=== PATIENT | male | born 1965 | race Two or more races ===

== ENCOUNTER 2016-07-25 14:15 | Inpatient (IN) | payer MEDICARE, MEDICAID ==
[2016-07-25] MEDS ORDERED: NORMAL SALINE 1000 ML 1,000 ML IV ONE ×2 (15:00→16:36)
[2016-07-25] MEDS ORDERED: ACETAMINOPHEN SUSP 160 MG/5 ML ORAL SYRING PO ONE (15:00)
[2016-07-25 15:19] LABS: ABSOLUTE BASOPHILS # (AUTO) 0.1 10^3/uL (0.0-0.2); ABSOLUTE EOSINOPHILS # (AUTO) 0.2 10^3/uL (0.0-0.6); ABSOLUTE LYMPHOCYTES (AUTO) 2.2 10^3/uL (0.5-4.7); ABSOLUTE MONOCYTES (AUTO) 0.9 10^3/uL (0.1-1.4); ABSOLUTE NEUT (AUTO) 12.7 10^3/uL (1.7-8.2); BASOPHILS % (AUTO) 0.4 % (0-2); EOSINOPHILS % (AUTO) 1.4 % (0-6); HEMATOCRIT 28.6 % (37.9-51.0); HEMOGLOBIN 8.8 g/dL (13.5-17.0); HGB HCT DIFFERENCE -2.2; LYMPHOCYTES % (AUTO) 13.8 % (13-45); MEAN CORPUSCULAR HEMOGLOBIN 20.4 pg (27.0-33.4); MEAN CORPUSCULAR HGB CONC 30.8 g/dL (32.0-36.0); MEAN CORPUSCULAR VOLUME 66 fl (80-97); MONOCYTES % (AUTO) 5.8 % (3-13); RED BLOOD COUNT 4.33 10^6/uL (4.35-5.55); RED CELL DISTRIBUTION WIDTH 18.5 % (11.5-14.0); SEGMENTED NEUTROPHILS % (AUTO) 78.6 % (42-78); WHITE BLOOD COUNT 16.1 10^3/uL (4.0-10.5)
--- NOTE | 2016-07-25 15:20 | ER Document Report ---
ED Fever - General Chief Complaint: Fever Stated Complaint: FEVER Time Seen by Provider: 07/25/16 14:24 Notes: History obtained from caregiver as patient is nonverbal. 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 He is receiving liquid Tylenol. He was at his wound care appointment and was sent to the ER for further evaluation of his fever after his wound was redressed. Patient has a dry cough over the past 3 days, but denies hematuria, sputum, rash, discharge out of his PEG tube or sacral wound or AMS. Patient also had a routine balloon dilation of his esophagus performed 2 days ago, but he denies chest pain. TRAVEL OUTSIDE OF THE [place] IN LAST 30 DAYS: No - Related Data Allergies/Adverse Reactions: aspirin Allergy (Verified 07/25/16 14:38) Penicillins Allergy (Verified 07/25/16 14:38) acetaminophen [From Tylenol] Adverse Reaction (Verified 07/25/16 14:38) Past Medical History - General Information source: Relative - Social History Smoking Status: Unknown if Ever Smoked Family History: Reviewed & Not Pertinent Review of Systems - Review of Systems Notes: REVIEW OF SYSTEMS: CONSTITUTIONAL: +fevers, -chills EENT: -eye pain, -nasal congestion CARDIOVASCULAR: -chest pain, -syncope. RESPIRATORY: +cough, -SOB GASTROINTESTINAL: -abdominal pain, -nausea, -vomiting, -diarrhea GENITOURINARY: -dysuria, -hematuria MUSCULOSKELETAL: -back pain, -neck pain SKIN: +chronic sacral wound HEMATOLOGIC: -easy bruising or bleeding. LYMPHATIC: -swollen, enlarged glands. NEUROLOGICAL: -altered mental status or loss of consciousness, -headache ALL OTHER SYSTEMS REVIEWED AND NEGATIVE. Physical Exam - Vital signs Vitals: Temp Pulse Resp BP Pulse Ox 100.7 F H 115 H 18 140/96 H 96 07/25/16 14:23 07/25/16 14:23 07/25/16 14:23 07/25/16 14:23 07/25/16 14:23 - Notes Notes: PHYSICAL EXAMINATION: GENERAL: In no acute distress. HEAD: Atraumatic, normocephalic. EYES: Pupils equal round and reactive to light, extraocular movements intact, sclera anicteric, conjunctiva are normal. ENT: nares patent, oropharynx clear without exudates. Moist mucous membranes. NECK: Normal range of motion, supple without lymphadenopathy LUNGS: Rhonchorous breath sounds bilaterally, no crackles, no respiratory distress HEART: Tachycardic without murmurs ABDOMEN: Soft, nontender, normoactive bowel sounds. PEG tube in place without discharge around tube. No guarding, no rebound. No masses appreciated. EXTREMITIES: No pitting or edema. No cyanosis. NEUROLOGICAL: No acute changes. SKIN: Stage 4 sacral ulcer without discharge Course - Re-evaluation Re-evalutation: Patient with fever, tachycardia and mild hypoxia down to 89%. Chest x-ray does not show any evidence of pneumonia. Urinalysis clear and no abdominal tenderness to suggest intra-abdominal pathology. His chronic sacral ulcer does not appear infected and there is no discharge out of the wound. CTA chest obtained due to concern for PE with prolonged immobilization. No PE seen, but does show evidence of ABIDA pneumonia. Will begin treatment with azithromycin and rifampin. Pt also with slight hyperkalemia of 5.6, but normal renal function. EKG shows slightly peaked T-waves in V3-V4. Will provide Calcium, Insulin, Albuterol and Lasix. Patient remains tachycardic despite fluids with slightly elevated lactate. His blood pressure has remained 140's/90's in the ED. Patient requires inpatient admission for antibiotics, fluids and further monitoring. 07/25/16 19:[address] Sorto and he has accepted patient as inpatient to telemetry. - Vital Signs Vital signs: Temp Pulse Resp BP Pulse Ox 100.7 F H 115 H 20 120/95 H 90 L 07/25/16 14:23 07/25/16 14:23 07/25/16 19:00 07/25/16 17:01 07/25/16 19:00 - Laboratory Result Diagrams: 07/25/16 14:53 07/25/16 14:53 Laboratory results interpreted by me: 07/25/16 07/25/16 07/25/16 14:53 14:53 15:09 WBC 16.1 H RBC 4.33 L Hgb 8.8 L Hct 28.6 L MCV 66 L MCH 20.4 L MCHC 30.8 L RDW 18.5 H Plt Count 566 H Seg Neutrophils % 78.6 H Absolute Neutrophils 12.7 H Potassium 5.6 H BUN 31 H Glucose 144 H Direct Bilirubin 0.5 H Alkaline Phosphatase 248 H Creatine Kinase 179 H Total Protein 9.3 H Lipase 16.4 L Urine Ascorbic Acid 40 H - Diagnostic Test Radiology reviewed: Image reviewed, Reports reviewed Radiology results interpreted by me: CXR: NAD CTA Chest: Diffuse small airways, nodular and tree-in-bud opacities are present throughout both lungs with right basilar predominance, this appearance can be seen with small airways infection including ABIDA, differential also includes hypersensitivity pneumonitis. No emboli visualized in the main pulmonary arteries. Breathing motion artifact limits evaluation of the segmental branches. - EKG Interpretation by Me EKG shows normal: Sinus rhythm, [place], Intervals, QRS Complexes, ST-T Waves Rate: Tachycardia [place]/QRS: RBBB - incomplete When compared to previous EKG there are: Previous EKG unavailable Additional EKG results interpreted by me: Peaked T-waves in V3-V4 Discharge - Discharge Clinical Impression: Bacterial infection due to mycoplasma, Hyperkalemia Sepsis Qualifiers: Sepsis type: sepsis due to unspecified organism Qualified Code(s): A41.9 - Sepsis, unspecified organism Condition: Stable Disposition: ADMITTED INPATIENT Admitting Provider: Hospitalist - [facility] Admitted: Telemetry Referrals: SID VARGAS MD [Primary Care Provider] - Follow up as needed
[2016-07-25 15:32] LABS: APPEARANCE,URINE CLEAR; BILIRUBIN,URINE NEGATIVE (NEGATIVE); GLUCOSE, URINE NEGATIVE (NEGATIVE); KETONES,URINE NEGATIVE (NEGATIVE); LEUKOCYTE ESTERASE,URINE NEGATIVE (NEGATIVE); NITRITE,URINE NEGATIVE (NEGATIVE); PROTEIN,URINE NEGATIVE (NEGATIVE); URINE SPECIFIC GRAVITY 1.008; UROBILINOGEN,URINE NEGATIVE mg/dL (<2.0)
[2016-07-25 15:45] LABS: ALANINE AMINOTRANSFERASE 28 U/L (21-72); ALBUMIN 3.6 g/dL (3.5-5.0); ALKALINE PHOSPHATASE 248 U/L (38-126); ANION GAP 13 (5-19); ASPARTATE AMINO TRANSFERASE 36 U/L (17-59); BILIRUBIN,DIRECT 0.5 mg/dL (0.0-0.4); BILIRUBIN,TOTAL 0.6 mg/dL (0.2-1.3); BLOOD UREA NITROGEN 31 mg/dL (7-20); CALCIUM 9.8 mg/dL (8.4-10.2); CARBON DIOXIDE 26 mmol/L (22-30); CHLORIDE 101 mmol/L (98-107); CREATINE KINASE 179 U/L (55-170); CREATININE RESULT 0.97 mg/dL (0.52-1.25); GLUCOSE 144 mg/dL (75-110); LIPASE 16.4 U/L (23-300); POTASSIUM 5.6 mmol/L (3.6-5.0); SODIUM 139.7 mmol/L (137-145); TOTAL PROTEIN 9.3 g/dL (6.3-8.2)
[2016-07-25] MEDS ORDERED: RIFAMPIN INJ 600 MG VIAL IV ONE (18:42)
[2016-07-25] MEDS ORDERED: AZITHROMYCIN INJ 500 MG VIAL IV ONE (18:47)
[2016-07-25] MEDS ORDERED: FUROSEMIDE INJ/PF 40 MG/4 ML SDV IV ONE (19:18)
[2016-07-25] MEDS ORDERED: ALBUTEROL SULFATE 0.083% NEB 2.5 MG/3 ML AMPUL NEB ONE (19:18)
[2016-07-25] MEDS ORDERED: CALCIUM GLUCONATE 1000 MG/10 ML INJ IV ONE (19:18)
[2016-07-25] MEDS ORDERED: INSULIN REG, HUMAN 100 UNIT/ML 3 ML VIAL (PYX) IV ONE (19:56)
[2016-07-25] MEDS ORDERED: ACETAMINOPHEN 325 MG TABLET PEG PRN (19:57)
[2016-07-25] MEDS ORDERED: IPRATROPIUM/ALBUTEROL 0.5-2.5 MG/3 ML AMPUL NEB PRN (19:57)
[2016-07-25] MEDS ORDERED: RIFAMPIN 600 MG in NORMAL SALINE 500 ML IV ONE (20:00)
[2016-07-25] MEDS ORDERED: IRON SUCROSE COMPLEX 100 MG in NORMAL SALINE 100 ML IV ONE (20:01)
[2016-07-25] MEDS: IPRATROPIUM/ALBUTEROL 0.5-2.5 MG/3 ML AMPUL NEB SCH (20:37)
[2016-07-25] MEDS ORDERED: DIAZEPAM 5 MG TABLET PO ONE (21:05)
[2016-07-25] MEDS ORDERED: OXYCODONE HCL SR 10 MG TABLET PO ONE (21:05)
[2016-07-25 22:55] LABS: FOLATE > 20.00 ng/mL (>2.76)
--- NOTE | 2016-07-25 23:10 | PDOC H&P ---
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 He been in his usual state of health until approximately 3 days ago having intermittent fevers of 101 prompting evaluation the emergency room where his found to have atypical pneumonia by CT, microcytic anemia, hyperkalemia, stage IV sacral decubiti. He has received empiric antibiotics and referred to the hospitalist for admission. Patient is unable to provide history and family members have left the bedside. Past Medical History Cardiac Medical History: Reports: Myocardial Infarction, Hypertension, Other - Status post cardiac arrest Endocrine Medical History: Reports: Diabetes Mellitus Type 1 Musculoskeltal Medical History: Reports: Other - Flexion contractures 4 Musculoskeletal History Note: Quadriplegia with flexion contracture X 4 Skin Medical History: Reports: Other - Stage IV sacral decubiti Psychiatric Medical History: Reports: None Past Surgical History Past Surgical History: Reports: Orthopedic Surgery - carpal tunnel and left elbow Social History Information Source: Emergency Med Personnel, [facility] Records Lives with: Family Smoking Status: Unknown if Ever Smoked Frequency of Alcohol Use: None - Advance Directive Resuscitation Status: Full Code Family History Family History: Other - Unobtainable Parental Family History Reviewed: No - unobtainable Children Family History Reviewed: No Sibling(s) Family History Reviewed.: No Medication/Allergy Home Medications: Acetaminophen 650 mg PO Q6HP PRN 07/25/16 Acetaminophen [Mapap] 650 mg PO Q6 PRN 07/25/16 Albuterol Sulfate [Albuterol Sulfate 2.5mg/3 mL] 1 vial IH Q6HP PRN 07/25/16 Albuterol Sulfate [Albuterol Sulfate 2.5mg/3 mL] 2.5 mg IH Q6 PRN 07/25/16 Blood Sugar Diagnostic [Accu-Chek Kirstin Plus] 1 each MC Q6 07/25/16 Cholecalciferol (Vitamin D3) [Vitamin D3 1000 Unit Tablet] 1,000 unit PO DAILY 07/25/16 Cholecalciferol (Vitamin D3) [Vitamin D3] 1,000 units PO DAILY 07/25/16 Cod Liver Oil/Zinc Oxide [Desitin Diaper Rash 40% Paste] 1 applic TOP PRN PRN Dextromethorphan HBr [Tussin Cough] 10 mg PO Q4 PRN 07/25/16 Diazepam 5 mg PO BID 07/25/16 Diazepam [Valium 5 mg Tablet] 5 mg PO BID 07/25/16 Guaifenesin/D-Methorphan Hb [Robitussin-Dm Syrup 10 Ml Udcup] 5 ml PO Q4HP PRN 07/25/16 Guaifenesin/Dextromethorphan [Diabetic Tussin Dm Liquid] 300 mg GT Q4 PRN Guaifenesin/Dextromethorphan [Diabetic Tussin Dm Liquid] 300 mg PO Q4HP PRN 01/31 Insulin Glargine,Hum.rec.anlog [Lantus] 15 unit SQ BID 07/25/16 Insulin Glargine,Hum.rec.anlog [Lantus] 15 units SQ BID 07/25/16 Insulin Lispro [Humalog] 0 unit SQ .SLDSCALE 07/25/16 Insulin Lispro [Humalog] 2 units SQ BID 07/25/16 Insulin Lispro [Humalog] 2 units SQ BID 07/25/16 Insulin Lispro [Humalog] 15 unit SQ BID 07/25/16 Insulin Lispro [Humalog] 100 unit SQ TID 07/25/16 Lancets 1 each SQ Q6 07/25/16 Lansoprazole 30 mg PO BID 07/25/16 Lansoprazole [Prevacid] 30 mg PO BID 07/25/16 Metoprolol Succinate/Hctz [Metoprolol ER-Hctz 100-12.5 mg] 100 mg PO BID Metoprolol Tartrate [Lopressor 100 mg Tablet] 100 mg PO Q12 07/25/16 Mirtazapine 7.5 mg PO QHS 07/25/16 Mirtazapine 7.5 mg PO QHS 07/25/16 Multivitamin with Minerals [Hair, Skin and Nails] 1 each PO DAILY 07/25/16 Multivitamin with Minerals [Hair, Skin and Nails] 1 tab PO DAILY 07/25/16 Mupirocin 22 gm TP DAILY 07/25/16 Mupirocin [Bactroban 2% Ointment 22 gm] 1 applic TOP DAILY 07/25/16 Ondansetron HCl [Zofran 8 mg Tablet] 8 mg PO TID 07/25/16 Oxycodone HCl [Oxy-Ir 5 mg Tablet] 10 mg PO Q4 07/25/16 Oxycodone HCl [Oxycodone HCl 10 MG Tablet] 10 mg PO Q4 07/25/16 Pen Needle, Diabetic [Pen Needle] 1 each SQ DAILY 07/25/16 Scopolamine [Transderm-Scop] 1 each TD Q3D 07/25/16 Scopolamine [Transderm-Scop] 1.5 mg TOP Q3DAYS 07/25/16 Tetrahydrozoline HCl [Visine 0.05% Oph Soln 15 Ml] 1 drop OU Q8HP PRN 07/25/16 Tetrahydrozoline HCl [Visine 0.05% Oph Soln 15 ml] 1 drop OU TID PRN 07/25/16 Zinc Oxide [Desitin] 113 gm TP ASDIR PRN 07/25/16 Allergies/Adverse Reactions: aspirin Allergy (Verified 07/25/16 14:38) Penicillins Allergy (Verified 07/25/16 14:38) acetaminophen [From Tylenol] Adverse Reaction (Verified 07/25/16 14:38) Review of Systems ROS unobtainable: Due to mental status - Aphasia and traumatic brain injury Physical Exam Vital Signs: Temp Pulse Resp BP Pulse Ox 100.1 F 99 33 H 115/79 99 07/25/16 21:33 07/25/16 20:37 07/25/16 21:30 07/25/16 21:30 07/25/16 21:30 General appearance: PRESENT: no acute distress, thin, other - Contracted and chronically ill-appearing Head exam: PRESENT: atraumatic, normocephalic Eye exam: PRESENT: conjunctiva pink, EOMI, PERRLA. ABSENT: scleral icterus Ear exam: PRESENT: normal external ear exam Mouth exam: PRESENT: moist, tongue midline Neck exam: ABSENT: carotid bruit, JVD, lymphadenopathy, thyromegaly Respiratory exam: PRESENT: accessory muscle use, crackles, decreased breath sounds, rhonchi, symmetrical, tachypnea. ABSENT: rales, stridor, wheezes Cardiovascular exam: PRESENT: RRR. ABSENT: diastolic murmur, rubs, systolic murmur Pulses: PRESENT: normal dorsalis pedis pul Vascular exam: PRESENT: normal capillary refill GI/Abdominal exam: PRESENT: normal bowel sounds, soft. ABSENT: distended, guarding, mass, organolmegaly, rebound, tenderness Rectal exam: PRESENT: deferred Extremities exam: PRESENT: full ROM. ABSENT: calf tenderness, clubbing, pedal edema Neurological exam: PRESENT: awake, oriented to person, CN II-XII grossly intact Psychiatric exam: PRESENT: appropriate affect, normal mood. ABSENT: homicidal ideation, suicidal ideation Skin exam: PRESENT: other - Stage IV sacral decubiti without malodorous discharge Results Laboratory Results: 07/25/16 07/25/16 07/25/16 20:25 20:25 21:29 Retic Count (auto) Cancelled 1.71 Absolute Retic Cancelled 0.074 Iron < 10.1 L TIBC 201 L % Saturation UNABLE TO CALCULATE Ferritin 14.60 L Vitamin B12 517.0 Folate > 20.00 Impressions: Chest X-Ray 07/25/16 14:31 IMPRESSION: No acute changes Chest/Abdomen CTA 07/25/16 16:37 IMPRESSION: Diffuse small airways, nodular and tree-in-bud opacities are present throughout both lungs with right basilar predominance, this appearance can be seen with small airways infection including ABIDA, differential also includes hypersensitivity pneumonitis. No emboli visualized in the main pulmonary arteries. Breathing motion artifact limits evaluation of the segmental branches. Assessment & Plan - Diagnosis (1) Pneumonia Is this a current diagnosis for this admission?: YesPlan: Acute problem CT suggesting atypical pneumonia he is placed on Rocephin and azithromycin and pneumonia care set when necessary airway suctioning, follow-up CBC and chest x-ray when necessary. (2) Anemia Qualifiers: Anemia type: iron deficiency Is this a current diagnosis for this admission?: YesPlan: Significant presumed new problem of microcytic anemia will obtain anemia workup and initiate iron with follow-up CBC (3) Chronic hypoxic-ischemic brain injury Is this a current diagnosis for this admission?: YesPlan: Supportive measures elevation of head of bed. Suctioning resume tube feeds, specialty bed (4) Hyperkalemia Is this a current diagnosis for this admission?: YesPlan: New problem unclear cause empiric treatment with Kayexalate, lactulose reevaluation of chemistry (5) Sepsis Qualifiers: Sepsis type: sepsis due to unspecified organism Qualified Code(s): A41.9 - Sepsis, unspecified organism Is this a current diagnosis for this admission?: YesPlan: Secondary to #1 IV fluid bolus when necessary pressors and verify CODE STATUS (6) Sacral decubitus ulcer, stage IV Is this a current diagnosis for this admission?: YesPlan: Surgical consultation and specialty bed - Time Time Spent: 50 to 70 Minutes - Inpatient Certification Medical Necessity: Need Close Monitoring Due to Risk of Patient Decompensation
[2016-07-25] MEDS: HEPARIN SOD (PORCINE) 5,000 UNIT/ML 1 ML SYRINGE SUBCUT SCH (23:33)
[2016-07-25] MEDS ORDERED: INSULIN REG, HUMAN 100 UNIT/ML 3 ML VIAL (PYX) ONE (23:41)
[2016-07-26] MEDS ORDERED: IRON SUCROSE COMPLEX 100 MG in NORMAL SALINE 100 ML IV ONE (00:30)
[2016-07-26] MEDS: IPRATROPIUM/ALBUTEROL 0.5-2.5 MG/3 ML AMPUL NEB SCH (02:14)
[2016-07-26] MEDS ORDERED: OXYCODONE HCL IR 5 MG TABLET PO ONE (03:15)
[2016-07-26] MEDS ORDERED: DIAZEPAM 5 MG TABLET PO ONE (03:30)
[2016-07-26] MEDS: HEPARIN SOD (PORCINE) 5,000 UNIT/ML 1 ML SYRINGE SUBCUT SCH ×3 (05:58→21:53)
[2016-07-26 07:27] LABS: ABSOLUTE BASOPHILS # (AUTO) 0.1 10^3/uL (0.0-0.2); ABSOLUTE EOSINOPHILS # (AUTO) 0.1 10^3/uL (0.0-0.6); ABSOLUTE LYMPHOCYTES (AUTO) 2.2 10^3/uL (0.5-4.7); ABSOLUTE NEUT (AUTO) 14.3 10^3/uL (1.7-8.2); BASOPHILS % (AUTO) 0.5 % (0-2); EOSINOPHILS % (AUTO) 0.5 % (0-6); HEMATOCRIT 26.6 % (37.9-51.0); HEMOGLOBIN 8.2 g/dL (13.5-17.0); LYMPHOCYTES % (AUTO) 12.7 % (13-45); MEAN CORPUSCULAR HEMOGLOBIN 20.2 pg (27.0-33.4); MEAN CORPUSCULAR HGB CONC 30.8 g/dL (32.0-36.0); MEAN CORPUSCULAR VOLUME 66 fl (80-97); MONOCYTES % (AUTO) 5.7 % (3-13); RED BLOOD COUNT 4.05 10^6/uL (4.35-5.55); RED CELL DISTRIBUTION WIDTH 18.4 % (11.5-14.0); SEGMENTED NEUTROPHILS % (AUTO) 80.6 % (42-78); WHITE BLOOD COUNT 17.7 10^3/uL (4.0-10.5)
[2016-07-26 07:44] LABS: ANION GAP 15 (5-19); BLOOD UREA NITROGEN 25 mg/dL (7-20); CALCIUM 9.6 mg/dL (8.4-10.2); CARBON DIOXIDE 23 mmol/L (22-30); CHLORIDE 104 mmol/L (98-107); CREATININE RESULT 0.89 mg/dL (0.52-1.25); GLUCOSE 142 mg/dL (75-110); POTASSIUM 4.9 mmol/L (3.6-5.0); SODIUM 142.3 mmol/L (137-145)
[2016-07-26] MEDS ORDERED: SCOPOLAMINE HYDROBROMIDE 1.5 MG PATCH.TD72 TD SCH ×2 (07:45→10:00)
[2016-07-26] MEDS ORDERED: ACETAMINOPHEN 650 MG PO PRN (07:45)
[2016-07-26] MEDS ORDERED: ACETAMINOPHEN 325 MG TABLET PO PRN (07:52)
[2016-07-26] MEDS: METOPROLOL TARTRATE 100 MG TABLET PO SCH ×2 (08:42→21:53)
[2016-07-26] MEDS: LANSOPRAZOLE 30 MG TAB.RAP.DR PO SCH ×2 (08:43→17:44)
[2016-07-26] MEDS: OXYCODONE HCL IR 5 MG TABLET PO PRN ×3 (08:44→19:00)
[2016-07-26] MEDS: AZITHROMYCIN 500 MG in DEXTROSE 5%-WATER 250 ML IV SCH (08:46)
[2016-07-26] MEDS: LEVALBUTEROL HCL NEB 1.25 MG/3 ML AMPUL NEB SCH ×3 (08:49→19:42)
[2016-07-26] MEDS: SCOPOLAMINE HYDROBROMIDE 1.5 MG PATCH.TD72 TD SCH (09:15)
[2016-07-26] MEDS ORDERED: ACETAMINOPHEN 325 MG TABLET GT PRN (09:33)
[2016-07-26] MEDS ORDERED: METOPROLOL TARTRATE 100 MG TABLET GT PRN (09:33)
[2016-07-26] MEDS ORDERED: OXYCODONE HCL IR 5 MG TABLET PO SCH (10:00)
[2016-07-26] MEDS ORDERED: DIAZEPAM 5 MG TABLET PO SCH (10:00)
[2016-07-26] MEDS ORDERED: (PENDING PHARMACY ID) (Lactobacillus Acidophilus [Probiotic] 1 EACH) GT SCH (10:00)
[2016-07-26] MEDS ORDERED: (PENDING PHARMACY ID) (Lansoprazole [Prevacid] 30 MG) PO SCH (10:00)
[2016-07-26] MEDS ORDERED: MUPIROCIN 2% OINTMENT 22 GM TP ONE (11:00)
[2016-07-26] MEDS: LACTOBACILLUS ACIDOPHILUS 250 MG TAB GT SCH (11:20)
[2016-07-26] MEDS: LANSOPRAZOLE 30 MG TAB.RAP.DR GT SCH ×2 (11:21→17:43)
[2016-07-26] MEDS: LEVOFLOXACIN 500 MG/D5W RTU 100 ML IV SCH (11:22)
[2016-07-26] MEDS: INSULIN GLARGINE,HUM.REC.ANLOG 1,000 UNIT/10 ML UNIT SUBCUT SCH ×2 (11:24→17:44)
--- NOTE | 2016-07-26 11:31 | EKG REPORT ---
SEVERITY:- ABNORMAL ECG - SINUS TACHYCARDIA INCOMPLETE RIGHT BUNDLE BRANCH BLOCK : Confirmed by: Miles Reed 26-Jul-2016 11:30:26
--- NOTE | 2016-07-26 11:34 | PDOC PROGRESS REPORT ---
Subjective Progress Note for:: 07/26/16 Subjective:: Patient is seen on morning rounds. He is resting in bed. His is at the bedside. He has had low-grade fevers continue overnight. He has a congested cough. His history of anoxic brain injury. Review of systems cannot be completed due to mentation. His states cough occurred 2 days ago. She states he was having difficulty with vomiting at the time. She states he has his esophagus dilated 2 days ago. She states they receiving wound care for stage 4 sacral wound yesterday by Dr. Chawla, he referred them here because of fever Physical Exam Vital Signs: Temp Pulse Resp BP Pulse Ox 98.6 F 122 H 22 H 140/82 H 100 07/26/16 03:05 07/26/16 07:07 07/26/16 07:07 07/26/16 07:07 07/26/16 07:07 Intake & Output 07/25/16 07/26/16 07/27/16 06:59 06:59 06:59 Intake Total 300 Balance 300 Weight 70.76 kg General appearance: PRESENT: no acute distress, thin, well-developed, well- nourished Head exam: PRESENT: atraumatic, normocephalic Eye exam: PRESENT: conjunctiva pink, EOMI, PERRLA. ABSENT: scleral icterus Ear exam: PRESENT: normal external ear exam Mouth exam: PRESENT: moist, tongue midline Teeth exam: PRESENT: edentulous Neck exam: ABSENT: carotid bruit, JVD, lymphadenopathy, thyromegaly Respiratory exam: PRESENT: rhonchi, symmetrical, tachypnea Cardiovascular exam: PRESENT: RRR. ABSENT: diastolic murmur, rubs, systolic murmur Pulses: PRESENT: normal dorsalis pedis pul Vascular exam: PRESENT: normal capillary refill GI/Abdominal exam: PRESENT: normal bowel sounds, soft, other - PEG tube patent. ABSENT: distended, guarding, mass, organolmegaly, rebound, tenderness Rectal exam: PRESENT: deferred Extremities exam: PRESENT: full ROM. ABSENT: calf tenderness, clubbing, pedal edema Musculoskeletal exam: PRESENT: normal inspection Neurological exam: PRESENT: alert, altered, CN II-XII grossly intact, other - does not follow any commands Psychiatric exam: PRESENT: flat affect Skin exam: PRESENT: dry, intact, warm, other - stage 4 sacral wound. ABSENT: cyanosis, rash Results Laboratory Results: 07/26/16 06:18 07/26/16 06:18 07/25/16 07/25/16 07/25/16 20:25 20:25 21:29 WBC RBC Hgb Hct MCV MCH MCHC RDW Plt Count Seg Neutrophils % Lymphocytes % Monocytes % Eosinophils % Basophils % Absolute Neutrophils Absolute Lymphocytes Absolute Monocytes Absolute Eosinophils Absolute Basophils Retic Count (auto) Cancelled 1.71 Absolute Retic Cancelled 0.074 Sodium Potassium Chloride Carbon Dioxide Anion Gap BUN Creatinine Est GFR ( Amer) Est GFR (Non-Af Amer) Glucose Calcium Iron < 10.1 L TIBC 201 L % Saturation UNABLE TO CALCULATE Ferritin 14.60 L Vitamin B12 517.0 Folate > 20.00 07/26/16 07/26/16 06:18 06:18 WBC 17.7 H RBC 4.05 L Hgb 8.2 L Hct 26.6 L MCV 66 L MCH 20.2 L MCHC 30.8 L RDW 18.4 H Plt Count 513 H Seg Neutrophils % 80.6 H Lymphocytes % 12.7 L Monocytes % 5.7 Eosinophils % 0.5 Basophils % 0.5 Absolute Neutrophils 14.3 H Absolute Lymphocytes 2.2 Absolute Monocytes 1.0 Absolute Eosinophils 0.1 Absolute Basophils 0.1 Retic Count (auto) Absolute Retic Sodium 142.3 Potassium 4.9 Chloride 104 Carbon Dioxide 23 Anion Gap 15 BUN 25 H Creatinine 0.89 Est GFR ( Amer) > 60 Est GFR (Non-Af Amer) > 60 Glucose 142 H Calcium 9.6 Iron TIBC % Saturation Ferritin Vitamin B12 Folate Impressions: Chest X-Ray 07/25/16 14:31 IMPRESSION: No acute changes Chest/Abdomen CTA 07/25/16 16:37 IMPRESSION: Diffuse small airways, nodular and tree-in-bud opacities are present throughout both lungs with right basilar predominance, this appearance can be seen with small airways infection including ABIDA, differential also includes hypersensitivity pneumonitis. No emboli visualized in the main pulmonary arteries. Breathing motion artifact limits evaluation of the segmental branches. Assessment & Plan - Diagnosis (1) Sepsis Qualifiers: Sepsis type: sepsis due to unspecified organism Qualified Code(s): A41.9 - Sepsis, unspecified organism Is this a current diagnosis for this admission?: YesPlan: Tachycardia, fever and tachypnea. Probably secondary to pneumonia, possible aspiration, and or stage 4 sacral wound (2) Pneumonia Qualifiers: Pneumonia type: aspiration pneumonia Laterality: bilateral Lung location: unspecified part of lung Is this a current diagnosis for this admission?: Yes (3) Sacral decubitus ulcer, stage IV Is this a current diagnosis for this admission?: YesPlan: Consult surgialist for wound care, MRI of pelvis to rule out osteomyelitis (4) Chronic hypoxic-ischemic brain injury Is this a current diagnosis for this admission?: YesPlan: Patient is cared for at home by family (5) Hyperkalemia Is this a current diagnosis for this admission?: YesPlan: Resolving will continue to monitor (6) Anemia Qualifiers: Anemia type: iron deficiency Is this a current diagnosis for this admission?: YesPlan: Iron supplement given will continue to monitor - Time Time Spent with patient: 25-34 minutes Critical Time spent with patient: 15-24 minutes Smoking Cessation Education: 3 to 10 minutes Medications reviewed and adjusted accordingly: Yes
[2016-07-26] MEDS ORDERED: ZINC OXIDE 20% OINTMENT 28.35 GM TP PRN (12:00)
[2016-07-26] MEDS ORDERED: DEXTROSE 50%-WATER 25 GM/50 ML DISP.SYRIN IV PRN ×2 (14:17)
[2016-07-26] MEDS ORDERED: LORAZEPAM INJ 2 MG/1 ML VIAL IV ONE (14:17)
[2016-07-26] MEDS ORDERED: DEXTROSE 40% GEL 15 GM TUBE PO PRN ×2 (14:17)
[2016-07-26] MEDS ORDERED: GLUCAGON,HUMAN RECOMB 1 MG INJ IM PRN (14:17)
[2016-07-26] MEDS ORDERED: INSULIN LISPRO 100 UNIT/ML 3 ML VIAL SUBCUT PRN (14:17)
--- NOTE | 2016-07-26 15:23 | CONSULTATION REPORT E ---
Consultation Report NAME: ANETA HENDRICKSON : 1965 AGE: 50Y DATE: 07/26/2016 527 A TO: ZO RAMÍREZ M.D. FROM: SHAYLA CARDOSO M.D. Requesting Physician REASON FOR CONSULTATION: Patient with stage IV sacral decubitus. HISTORY OF PRESENT ILLNESS: This is a 50-year-old -[place] male who apparently had a heart attack June 2015 when he had brain anoxia. He has a PEG tube and has been bedridden and being cared of by his . He apparently developed decubitus ulcer and has been more progressive. Apparently it was treated with wound vac in the past but somehow it got discontinued when the claims that Medicaid did not cover for further vac therapy. PAST MEDICAL HISTORY: 1. History of AR and hypertension. 2. Diabetes mellitus type 1. 3. Starting of flexion contractures x4. 4. Also noted to have quadriplegia with flexion contracture x4. 4. Skin stage IV sacral decubitus. PAST SURGICAL HISTORY: History of carpal tunnel and left elbow surgery. SOCIAL HISTORY: Used to smoke about a pack a day until his AR, and used to drink half a gallon of vodka a day prior to his AR and no drug use. FAMILY HISTORY: Noncontributory. HOME MEDICATIONS: 1. Albuterol sulfate. 2. Insulin. 3. Diazepam. 4. Mirtazapine. 5. Multivitamin. 6. Metoprolol. ALLERGIES: ASPIRIN, PENICILLIN, ACETAMINOPHEN. REVIEW OF SYSTEMS: Unobtainable since patient is aphasic. PHYSICAL EXAMINATION: GENERAL: Well developed, well nourished, 50-year-old male, afebrile. He apparently has some fever for the past [address] Chawla decided to get him to the hospital instead of to be seen at the clinic. General appearance, no acute distress, contracted and chronically ill appearing. VITAL SIGNS: At present his blood pressure is 115/79, heart rate of 99, pulse ox 99%, respiratory rate of 33. HEENT: Normocephalic. Conjunctiva is pink. Normal external ear exam. Tongue is moist and midline. NECK: Showed no thyromegaly. LUNGS: Clear. HEART: Showed regular sinus rhythm. VASCULAR EXAM: Normal capillary refill. GI/ABDOMINAL EXAM: Abdomen soft, nondistended. EXTREMITIES: No calf tenderness and no edema. Some contractures of all extremities, primarily of the right arm and right leg. PSYCHIATRIC EXAM: Appropriate affect?. Better when the patient is with his . DIAGNOSTIC STUDIES: He had a chest x-ray which showed no acute changes. CT which showed no emboli or no lesions noted. IMPRESSION: Stage IV sacral area. He has a stage IV sacral decubitus measuring 5 cm x 3 cm x 3.5 cm x 3 cm deep. It is down to the sacral bone and the sacral bone is exposed. PLAN: Impression is stage IV sacral decubitus ulcer possibly source of infection, though at this time does not look of any foul-smelling discharge and no obvious necrotic tissue noted. While waiting for the results of the MRI to rule out osteo, will continue on the IV antibiotic therapy. If MRI is positive, then Orthopedic consultation should be obtained. DICTATING PHYSICIAN: ZO RAMÍREZ M.D. [id number] PHY#: [id number] ID: [id number] JOB#: [id number] ACCT: [id number] cc:ZO RAMÍREZ M.D. >
[2016-07-26] MEDS: MUPIROCIN 2% OINTMENT 22 GM TP SCH (17:41)
[2016-07-26] MEDS: DIAZEPAM 2 MG TABLET GT PRN (19:00)
[2016-07-26] MEDS ORDERED: LORAZEPAM INJ 2 MG/1 ML VIAL ONE (20:39)
[2016-07-26] MEDS: MIRTAZAPINE 15 MG TABLET GT SCH (21:52)
[2016-07-26] MEDS: DOXEPIN HCL 10 MG CAPSULE GT SCH (21:52)
[2016-07-26] MEDS ORDERED: MIRTAZAPINE 15 MG TABLET PO SCH (22:00)
[2016-07-27 05:15] LABS: ABSOLUTE BASOPHILS # (AUTO) 0.1 10^3/uL (0.0-0.2); ABSOLUTE EOSINOPHILS # (AUTO) 0.3 10^3/uL (0.0-0.6); ABSOLUTE LYMPHOCYTES (AUTO) 2.6 10^3/uL (0.5-4.7); ABSOLUTE MONOCYTES (AUTO) 0.9 10^3/uL (0.1-1.4); ABSOLUTE NEUT (AUTO) 8.9 10^3/uL (1.7-8.2); BASOPHILS % (AUTO) 0.6 % (0-2); EOSINOPHILS % (AUTO) 2.1 % (0-6); HEMATOCRIT 26.6 % (37.9-51.0); HEMOGLOBIN 8.6 g/dL (13.5-17.0); HGB HCT DIFFERENCE -0.8; LYMPHOCYTES % (AUTO) 20.5 % (13-45); MEAN CORPUSCULAR HEMOGLOBIN 21.1 pg (27.0-33.4); MEAN CORPUSCULAR HGB CONC 32.3 g/dL (32.0-36.0); MEAN CORPUSCULAR VOLUME 65 fl (80-97); MONOCYTES % (AUTO) 6.9 % (3-13); RED BLOOD COUNT 4.09 10^6/uL (4.35-5.55); RED CELL DISTRIBUTION WIDTH 18.5 % (11.5-14.0); SEGMENTED NEUTROPHILS % (AUTO) 69.9 % (42-78); WHITE BLOOD COUNT 12.7 10^3/uL (4.0-10.5)
[2016-07-27 05:39] LABS: ANION GAP 13 (5-19); BLOOD UREA NITROGEN 29 mg/dL (7-20); CALCIUM 9.8 mg/dL (8.4-10.2); CARBON DIOXIDE 26 mmol/L (22-30); CHLORIDE 105 mmol/L (98-107); CREATININE RESULT 1.01 mg/dL (0.52-1.25); GLUCOSE 196 mg/dL (75-110); POTASSIUM 4.8 mmol/L (3.6-5.0); SODIUM 143.6 mmol/L (137-145)
[2016-07-27] MEDS: HEPARIN SOD (PORCINE) 5,000 UNIT/ML 1 ML SYRINGE SUBCUT SCH ×3 (06:08→21:23)
[2016-07-27] MEDS: LEVALBUTEROL HCL NEB 1.25 MG/3 ML AMPUL NEB SCH ×3 (08:47→20:01)
[2016-07-27] MEDS: METOPROLOL TARTRATE 100 MG TABLET PO SCH ×2 (10:39→21:23)
[2016-07-27] MEDS: LANSOPRAZOLE 30 MG TAB.RAP.DR GT SCH ×3 (10:40→16:05)
[2016-07-27] MEDS: LEVOFLOXACIN 500 MG/D5W RTU 100 ML IV SCH (10:40)
[2016-07-27] MEDS: LACTOBACILLUS ACIDOPHILUS 250 MG TAB GT SCH (10:40)
[2016-07-27] MEDS: MUPIROCIN 2% OINTMENT 22 GM TP SCH ×2 (10:41→17:44)
[2016-07-27] MEDS: AZITHROMYCIN 500 MG in DEXTROSE 5%-WATER 250 ML IV SCH (10:42)
[2016-07-27] MEDS: INSULIN GLARGINE,HUM.REC.ANLOG 1,000 UNIT/10 ML UNIT SUBCUT SCH ×2 (11:34→22:27)
[2016-07-27] MEDS: DIAZEPAM 2 MG TABLET GT PRN ×2 (11:36→17:43)
[2016-07-27] MEDS: OXYCODONE HCL IR 5 MG TABLET PO PRN ×3 (11:36→22:25)
--- NOTE | 2016-07-27 12:01 | PDOC PROGRESS REPORT ---
Subjective Progress Note for:: 07/27/16 Subjective:: Patient is seen on morning rounds. He is resting in bed. His is at the bedside. He has had no fevers overnight. 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 He has a congested cough which is improved since yesterday. He has history of anoxic brain injury that occurred one year ago. He is not verbally communicative. Review of systems cannot be completed due to mentation. His states cough occurred 2 days ago. She states he was having difficulty with vomiting at the time. She states he has his esophagus dilated 2 days ago. She states they receiving wound care for stage 4 sacral wound yesterday by Dr. Chawla, he referred them here because of fever Physical Exam Vital Signs: Temp Pulse Resp BP Pulse Ox 98.4 F 124 H 20 117/88 H 98 07/27/16 07:41 07/27/16 08:47 07/27/16 08:47 07/27/16 07:41 07/27/16 08:47 Intake & Output 07/26/16 07/27/16 07/28/16 06:59 06:59 06:59 Intake Total 300 1061 Output Total 500 Balance 300 561 Weight 70.76 kg 64.343 kg General appearance: PRESENT: no acute distress, thin, well-developed, well- nourished Head exam: PRESENT: atraumatic, normocephalic Eye exam: PRESENT: conjunctiva pink, EOMI, PERRLA. ABSENT: scleral icterus Ear exam: PRESENT: normal external ear exam Mouth exam: PRESENT: moist, tongue midline Neck exam: ABSENT: carotid bruit, JVD, lymphadenopathy, thyromegaly Respiratory exam: PRESENT: rhonchi, symmetrical, unlabored, other - bilaterally Cardiovascular exam: PRESENT: RRR. ABSENT: diastolic murmur, rubs, systolic murmur Pulses: PRESENT: normal dorsalis pedis pul Vascular exam: PRESENT: normal capillary refill GI/Abdominal exam: PRESENT: normal bowel sounds, soft. ABSENT: distended, guarding, mass, organolmegaly, rebound, tenderness Rectal exam: PRESENT: deferred Extremities exam: PRESENT: full ROM. ABSENT: calf tenderness, clubbing, pedal edema Neurological exam: PRESENT: alert, altered, CN II-XII grossly intact Psychiatric exam: PRESENT: flat affect Skin exam: PRESENT: dry, intact, warm. ABSENT: cyanosis, rash Results Laboratory Results: 07/27/16 04:46 07/27/16 04:46 07/27/16 07/27/16 04:46 04:46 WBC 12.7 H RBC 4.09 L Hgb 8.6 L Hct 26.6 L MCV 65 L MCH 21.1 L MCHC 32.3 RDW 18.5 H Plt Count 507 H Seg Neutrophils % 69.9 Lymphocytes % 20.5 Monocytes % 6.9 Eosinophils % 2.1 Basophils % 0.6 Absolute Neutrophils 8.9 H Absolute Lymphocytes 2.6 Absolute Monocytes 0.9 Absolute Eosinophils 0.3 Absolute Basophils 0.1 Sodium 143.6 Potassium 4.8 Chloride 105 Carbon Dioxide 26 Anion Gap 13 BUN 29 H Creatinine 1.01 Est GFR ( Amer) > 60 Est GFR (Non-Af Amer) > 60 Glucose 196 H Calcium 9.8 Impressions: Chest X-Ray 07/25/16 14:31 IMPRESSION: No acute changes Chest/Abdomen CTA 07/25/16 16:37 IMPRESSION: Diffuse small airways, nodular and tree-in-bud opacities are present throughout both lungs with right basilar predominance, this appearance can be seen with small airways infection including ABIDA, differential also includes hypersensitivity pneumonitis. No emboli visualized in the main pulmonary arteries. Breathing motion artifact limits evaluation of the segmental branches. Pelvis MRI 07/26/16 00:00 IMPRESSION: LIMITED MRI OF THE PELVIS ABOVE WITH FINDINGS CONCERNING FOR OSTEOMYELITIS OF THE COCCYX IN THE SETTING OF LARGE DECUBITUS ULCER. Skull X-Ray 07/26/16 00:00 IMPRESSION: No foreign body is present. Assessment & Plan - Diagnosis (1) Sepsis Qualifiers: Sepsis type: sepsis due to unspecified organism Qualified Code(s): A41.9 - Sepsis, unspecified organism Is this a current diagnosis for this admission?: YesPlan: Tachycardia, fever and tachypnea have improved. Probably secondary to pneumonia , possible aspiration, and or stage 4 sacral wound (2) Acute osteomyelitis of sacrum Is this a current diagnosis for this admission?: YesPlan: Patient will need 6 weeks of IV antibitiotic therapy (3) Pneumonia Qualifiers: Pneumonia type: aspiration pneumonia Laterality: bilateral Lung location: unspecified part of lung Is this a current diagnosis for this admission?: YesPlan: Continue IV broad spectrum antibiotic therapy (4) Sacral decubitus ulcer, stage IV Is this a current diagnosis for this admission?: YesPlan: MRI shows early osteomyelitis of the sacrum, we will consult orthopedic surgery. Surgicalist, Dr. Abernathy, plans to take patient to the OR tomorrow for a diverting colostomy to help with sacral wound healing. (5) Chronic hypoxic-ischemic brain injury Is this a current diagnosis for this admission?: YesPlan: Patient is cared for at home by family (6) Hyperkalemia Is this a current diagnosis for this admission?: YesPlan: Resolving will continue to monitor (7) Anemia Qualifiers: Anemia type: iron deficiency Is this a current diagnosis for this admission?: YesPlan: Iron supplement given will continue to monitor - Time Time Spent with patient: 25-34 minutes Critical Time spent with patient: 15-24 minutes Medications reviewed and adjusted accordingly: Yes Anticipated discharge: Home with Homehealth
--- NOTE | 2016-07-27 18:08 | PROGRESS NOTE E ---
Progress Note NAME: ANETA HENDRICKSON : 1965 AGE: 50Y DATE: 07/27/2016 ROOM: 527 The patient had an MRI last night, which showed a strong possibility for osteomyelitis. The options were extensively discussed with his . One option is to do a diverting colostomy since there is a lot programs as far as keeping the VAC in place. The claims that after about 2 or 3 hours with the patient sweating and especially if he had diarrhea, the VAC dressings displace and a new VAC dressing needs to be put on. Also, apparently, the claims that the wound has been getting better and showed me a picture of the wound about 2 months ago and it appears to be coming along fine and appears to be just full thickness or stage 3. However, she claims that the wound VAC nurse added Aquacel and since then, it has been getting deeper and now to the point where the sacral bone is exposed. I told her that the diverting colostomy may be a drastic procedure, but this may be one of the best things to try to heal the wound. I told her that the colostomy is temporary and it could be reversed in the future. However, if care for her is easier with a colostomy, then the colostomy does not need to be put back. Also, will get an orthopedic consult as far as the bone osteomyelitis is concerned. She agreed to do the diverting colostomy and possibly a bone biopsy prior to a more formal orthopedic procedure. The patient is scheduled for diverting colostomy and biopsy of the bone to get a bone culture tomorrow. DICTATING PHYSICIAN: ZO RAMÍREZ M.D. [id number] PHY#: [id number] ID: [id number] JOB#: [id number] ACCT: [id number] cc: >
[2016-07-27] MEDS: DOXEPIN HCL 10 MG CAPSULE GT SCH (21:23)
[2016-07-27] MEDS: MIRTAZAPINE 15 MG TABLET GT SCH (21:23)
[2016-07-28] MEDS: HEPARIN SOD (PORCINE) 5,000 UNIT/ML 1 ML SYRINGE SUBCUT SCH (05:08)
[2016-07-28 06:17] LABS: ABSOLUTE BASOPHILS # (AUTO) 0.1 10^3/uL (0.0-0.2)
[2016-07-28 06:23] LABS: ABSOLUTE EOSINOPHILS # (AUTO) 0.3 10^3/uL (0.0-0.6); ABSOLUTE LYMPHOCYTES (AUTO) 2.9 10^3/uL (0.5-4.7); ABSOLUTE MONOCYTES (AUTO) 0.8 10^3/uL (0.1-1.4); ABSOLUTE NEUT (AUTO) 9.7 10^3/uL (1.7-8.2); BASOPHILS % (AUTO) 0.5 % (0-2); HEMATOCRIT 24.5 % (37.9-51.0); HGB HCT DIFFERENCE -1.1; LYMPHOCYTES % (AUTO) 21.4 % (13-45); MEAN CORPUSCULAR HEMOGLOBIN 20.8 pg (27.0-33.4); MEAN CORPUSCULAR VOLUME 65 fl (80-97); MONOCYTES % (AUTO) 5.6 % (3-13); RED BLOOD COUNT 3.78 10^6/uL (4.35-5.55); RED CELL DISTRIBUTION WIDTH 18.1 % (11.5-14.0); SEGMENTED NEUTROPHILS % (AUTO) 70.5 % (42-78); WHITE BLOOD COUNT 13.8 10^3/uL (4.0-10.5)
[2016-07-28 06:28] LABS: PROTHROMBIN TIME 14.8 SEC (11.4-15.4)
[2016-07-28 06:40] LABS: ANION GAP 12 (5-19); BLOOD UREA NITROGEN 26 mg/dL (7-20); CALCIUM 9.3 mg/dL (8.4-10.2); CARBON DIOXIDE 23 mmol/L (22-30); CHLORIDE 105 mmol/L (98-107); CREATININE RESULT 0.92 mg/dL (0.52-1.25); GLUCOSE 184 mg/dL (75-110); POTASSIUM 4.4 mmol/L (3.6-5.0)
[2016-07-28 06:47] LABS: HEMOGLOBIN 7.8 g/dL (13.5-17.0)
[2016-07-28] MEDS ORDERED: NORMAL SALINE 1000 ML 1,000 ML IV PRN (06:55)
[2016-07-28] MEDS: LEVALBUTEROL HCL NEB 1.25 MG/3 ML AMPUL NEB SCH ×3 (08:56→19:07)
[2016-07-28] MEDS: LANSOPRAZOLE 30 MG TAB.RAP.DR GT SCH ×3 (09:50→16:34)
[2016-07-28] MEDS: INSULIN GLARGINE,HUM.REC.ANLOG 1,000 UNIT/10 ML UNIT SUBCUT SCH ×2 (09:56→18:25)
[2016-07-28] MEDS: AZITHROMYCIN 500 MG in DEXTROSE 5%-WATER 250 ML IV SCH (09:56)
[2016-07-28] MEDS: LEVOFLOXACIN 500 MG/D5W RTU 100 ML IV SCH (09:56)
[2016-07-28] MEDS: METOPROLOL TARTRATE 100 MG TABLET PO SCH ×2 (09:56→21:22)
[2016-07-28] MEDS: LACTOBACILLUS ACIDOPHILUS 250 MG TAB GT SCH (10:19)
[2016-07-28] MEDS: FERROUS SULFATE LIQUID 300 MG/5 ML UDC PO SCH ×2 (10:19→18:25)
[2016-07-28] MEDS: MUPIROCIN 2% OINTMENT 22 GM TP SCH ×2 (10:19→18:25)
--- NOTE | 2016-07-28 11:44 | PDOC PROGRESS REPORT ---
Subjective Progress Note for:: 07/28/16 Subjective:: Patient is seen on morning rounds. He is resting in bed. His is at the bedside. He has had no fevers overnight. He has been NPO for surgery this morning. He continues to have loose congested cough. He is nonverbal and unable to participate in review of systems. Physical Exam Vital Signs: Temp Pulse Resp BP Pulse Ox 98.1 F 96 22 H 130/78 H 100 07/28/16 00:58 07/28/16 08:56 07/28/16 08:56 07/28/16 00:58 07/28/16 08:56 Intake & Output 07/27/16 07/28/16 07/29/16 06:59 06:59 06:59 Intake Total 1061 710 Output Total 500 Balance 561 710 Weight 64.343 kg 64.6 kg General appearance: PRESENT: no acute distress, thin, well-developed, well- nourished Head exam: PRESENT: atraumatic, normocephalic Eye exam: PRESENT: conjunctiva pink, EOMI, PERRLA. ABSENT: scleral icterus Ear exam: PRESENT: normal external ear exam Mouth exam: PRESENT: moist, tongue midline Teeth exam: PRESENT: edentulous Neck exam: ABSENT: carotid bruit, JVD, lymphadenopathy, thyromegaly Respiratory exam: PRESENT: rhonchi, symmetrical, unlabored. ABSENT: rales, wheezes Cardiovascular exam: PRESENT: RRR. ABSENT: diastolic murmur, rubs, systolic murmur Pulses: PRESENT: normal carotid pulses, normal radial pulses Vascular exam: PRESENT: normal capillary refill GI/Abdominal exam: PRESENT: normal bowel sounds, soft, other - PEG tube patent Rectal exam: PRESENT: deferred Extremities exam: PRESENT: full ROM, tenderness Musculoskeletal exam: PRESENT: normal inspection Neurological exam: PRESENT: alert, altered, CN II-XII grossly intact - nonverbal secondary to anoxic brain injury Psychiatric exam: PRESENT: flat affect Skin exam: PRESENT: other - stage 4 sacral wound without drainage Results Laboratory Results: 07/28/16 05:08 07/28/16 05:08 07/28/16 07/28/16 07/28/16 05:08 05:08 09:30 WBC 13.8 H RBC 3.78 L Hgb 7.8 L Hct 24.5 L MCV 65 L MCH 20.8 L MCHC 32.0 RDW 18.1 H Plt Count 370 Seg Neutrophils % 70.5 Lymphocytes % 21.4 Monocytes % 5.6 Eosinophils % 2.0 Basophils % 0.5 Absolute Neutrophils 9.7 H Absolute Lymphocytes 2.9 Absolute Monocytes 0.8 Absolute Eosinophils 0.3 Absolute Basophils 0.1 Sodium 140.0 Potassium 4.4 Chloride 105 Carbon Dioxide 23 Anion Gap 12 BUN 26 H Creatinine 0.92 Est GFR ( Amer) > 60 Est GFR (Non-Af Amer) > 60 Glucose 184 H Calcium 9.3 Blood Type A POSITIVE Antibody Screen NEGATIVE Impressions: Chest X-Ray 07/25/16 14:31 IMPRESSION: No acute changes Chest/Abdomen CTA 07/25/16 16:37 IMPRESSION: Diffuse small airways, nodular and tree-in-bud opacities are present throughout both lungs with right basilar predominance, this appearance can be seen with small airways infection including ABIDA, differential also includes hypersensitivity pneumonitis. No emboli visualized in the main pulmonary arteries. Breathing motion artifact limits evaluation of the segmental branches. Pelvis MRI 07/26/16 00:00 IMPRESSION: LIMITED MRI OF THE PELVIS ABOVE WITH FINDINGS CONCERNING FOR OSTEOMYELITIS OF THE COCCYX IN THE SETTING OF LARGE DECUBITUS ULCER. Skull X-Ray 07/26/16 00:00 IMPRESSION: No foreign body is present. Assessment & Plan - Diagnosis (1) Sepsis Qualifiers: Sepsis type: sepsis due to unspecified organism Qualified Code(s): A41.9 - Sepsis, unspecified organism Is this a current diagnosis for this admission?: YesPlan: Tachycardia, fever and tachypnea have improved. Probably secondary to pneumonia , possible aspiration, and stage 4 sacral wound with sacral osteomyelitis. Continue IV antibioitics. Will descalate after surgery. Blood cultures remain negative at 48 hrs (2) Acute osteomyelitis of sacrum Is this a current diagnosis for this admission?: YesPlan: Patient will need 6 weeks of IV antibitiotic therapy (3) Pneumonia Qualifiers: Pneumonia type: aspiration pneumonia Laterality: bilateral Lung location: unspecified part of lung Is this a current diagnosis for this admission?: YesPlan: Continue IV broad spectrum antibiotic therapy (4) Sacral decubitus ulcer, stage IV Is this a current diagnosis for this admission?: YesPlan: MRI shows early osteomyelitis of the sacrum, we will consult orthopedic surgery. Surgicalist, Dr. Abernathy, plans to take patient to the OR tomorrow for a diverting colostomy to help with sacral wound healing. (5) Chronic hypoxic-ischemic brain injury Is this a current diagnosis for this admission?: YesPlan: Patient is cared for at home by family (6) Hyperkalemia Is this a current diagnosis for this admission?: YesPlan: Resolving will continue to monitor (7) Anemia Qualifiers: Anemia type: iron deficiency Is this a current diagnosis for this admission?: YesPlan: Hgb dropped to 7.8 today, from 8.2. Due to diversion colostomy surgery today will transfuse 2 units of PRBcs Iron supplement given will continue to monitor - Time Time Spent with patient: 25-34 minutes Critical Time spent with patient: 15-24 minutes Medications reviewed and adjusted accordingly: Yes
[2016-07-28] MEDS: DIAZEPAM 2 MG TABLET GT PRN ×2 (11:53→19:44)
[2016-07-28] MEDS: OXYCODONE HCL IR 5 MG TABLET PO PRN ×2 (11:54→19:44)
[2016-07-28] MEDS ORDERED: MIDAZOLAM 2 MG/2 ML INJ ONE (13:20)
[2016-07-28] MEDS ORDERED: PROPOFOL INJ 200 MG/20 ML VIAL IV ONE (13:20)
[2016-07-28] MEDS ORDERED: EPHEDRINE SULFATE INJ 50 MG/1 ML AMPULE ONE (13:20)
[2016-07-28] MEDS ORDERED: FENTANYL CITRATE INJ/PF 100 MCG/2 ML AMPUL ONE (13:27)
[2016-07-28] MEDS ORDERED: PROMETHAZINE HCL INJ 25 MG/1 ML VIAL IV PRN ×2 (14:54)
[2016-07-28] MEDS ORDERED: MEPERIDINE HCL/PF INJ 25 MG/1 ML DISP.SYRIN IV PRN (14:54)
[2016-07-28] MEDS ORDERED: DIPHENHYDRAMINE HCL 50 MG/ML VIAL IV PRN (14:54)
[2016-07-28] MEDS ORDERED: FENTANYL CITRATE INJ/PF 100 MCG/2 ML AMPUL IV PRN ×2 (14:54)
[2016-07-28] MEDS ORDERED: PHENYLEPHRINE HCL INJ/PF 10 MG/1 ML SDV ONE (16:40)
[2016-07-28] MEDS ORDERED: ONDANSETRON HCL INJ/PF 4 MG/2 ML SDV ONE (16:40)
[2016-07-28] MEDS ORDERED: DEXAMETHASONE SOD PHOSPHATE INJ 4 MG/1 ML VIAL ONE (16:40)
[2016-07-28] MEDS ORDERED: MORPHINE SULFATE 10 MG/ML INJ IV PRN (16:52)
--- NOTE | 2016-07-28 19:03 | OPERATIVE REPORT E ---
Operative Report NAME: ANETA HENDRICKSON : 1965 AGE: 50Y DATE OF SURGERY: 07/28/2016 ROOM: 527 PREOPERATIVE DIAGNOSIS: Stage IV sacral decubitus with osteomyelitis of the sacral bone. POSTOPERATIVE DIAGNOSIS: Stage IV sacral decubitus with osteomyelitis of the sacral bone. OPERATION: 1. Diverting transverse loop colostomy. 2. Debridement of sacral decubitus and sacral bone biopsy. SURGEON: ZO RAMÍREZ M.D. ANESTHESIA: Spinal. 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 He is a 50 years old, and his has been taking care of him. He had a chronic sacral decubitus since he had the anoxic encephalopathy about a year ago. This decubitus has been very difficult to manage with VAC because the VAC keeps getting loose whenever he sweats and only stays there for about 2 or 3 hours at which time it is displaced. Also, when the patient has diarrhea, it is very difficult to keep the VAC in place. It is stage IV with bone exposed. He had an MRI of the sacrum which was positive for osteomyelitis. The plan is to do a diverting colostomy, debride and get a bone biopsy for culture of the sacral bone. A formal orthopedic consultation will be obtained for osteomyelitis of the sacrum. DESCRIPTION OF PROCEDURE: After adequate spinal anesthesia, the patient was placed in supine position with lower extremities unable to be completely straightened out and had some flexion deformity around the knee areas. Also, the right arm has flexion contracture. The abdomen was then prepped and draped in the usual sterile fashion after adequate spinal anesthesia. A timeout was then performed. Since it was going to be difficult to insufflate the abdomen, initial plan to do laparoscopy was not done. A longitudinal incision was made over the right rectus muscle. Patient had a PEG tube towards the left upper quadrant. This made it easier to place a colostomy in the transverse colon on the right side. The fascia and muscle were subsequently divided and split and the posterior fascia also divided. The small bowel was pushed further caudad, and the omentum and transverse colon were subsequently pulled over the incision. The omentum was serially clamped, cut, and ligated with 0 silk ties. A segment of the colon 8 cm was cleared. A loop of the transverse colon was pulled up, and a drain was placed underneath the colon to pull it up. The distal part of the colon was partially ligated with 0 Vicryl to make it a more complete diversion. Following this, the posterior and anterior fascia were reapproximated distal and proximal allowing the colon enough room through the rectus sheath site. A plastic bar was then placed underneath the colon to keep it elevated above the skin. Part of the skin was closed with gómez. The colon was then isolated with Xeroform gauze. The colon was partially opened to about 2 cm and an appliance placed over the colostomy. The estimated blood loss was minimal. Next, the patient was then placed in a right lateral decubitus position and the sacrum prepped and draped in the usual sterile fashion. The sacral bone was then palpated and rongeured. Samples of the bone were sent for culture, doing essentially a biopsy. It was quite obvious that the patient has osteomyelitis of the sacral bone. Further debridement of the sacral decubitus ulcer was done with irrigation using Yennifer syringe. The sacral decubitus ulcer roughly measured about 6 cm long by about 5 cm wide and deep down into the sacral bone. There was some bleeding noted of the sacral bone, and this was then controlled by packing it with Iodoform gauze. Sterile dressing was placed on top of the Iodoform gauze. The patient tolerated the procedure well. ESTIMATED BLOOD LOSS: Minimal. Needle, instrument, and sponge counts were all correct for both operations. Patient then brought to the recovery room in satisfactory condition. DICTATING PHYSICIAN: ZO RAMÍREZ M.D. [id number] PHY#: [id number] ID: [id number] JOB#: [id number] ACCT: [id number] cc:ZO RAMÍREZ M.D. >
[2016-07-28] MEDS: MIRTAZAPINE 15 MG TABLET GT SCH (21:23)
[2016-07-28] MEDS: DOXEPIN HCL 10 MG CAPSULE GT SCH (21:23)
[2016-07-29] MEDS: OXYCODONE HCL IR 5 MG TABLET PO PRN ×4 (02:40→16:59)
[2016-07-29] MEDS: DIAZEPAM 2 MG TABLET GT PRN ×2 (02:41→11:58)
[2016-07-29 07:37] LABS: ABSOLUTE BASOPHILS # (AUTO) 0.2 10^3/uL (0.0-0.2); ABSOLUTE LYMPHOCYTES (AUTO) 1.8 10^3/uL (0.5-4.7); ABSOLUTE MONOCYTES (AUTO) 0.9 10^3/uL (0.1-1.4); ABSOLUTE NEUT (AUTO) 13.7 10^3/uL (1.7-8.2); BASOPHILS % (AUTO) 1.1 % (0-2); EOSINOPHILS % (AUTO) 0.1 % (0-6); HEMATOCRIT 37.8 % (37.9-51.0); HGB HCT DIFFERENCE -0.6; LYMPHOCYTES % (AUTO) 10.7 % (13-45); MEAN CORPUSCULAR HEMOGLOBIN 23.4 pg (27.0-33.4); MEAN CORPUSCULAR HGB CONC 32.9 g/dL (32.0-36.0); MONOCYTES % (AUTO) 5.7 % (3-13); RED BLOOD COUNT 5.31 10^6/uL (4.35-5.55); RED CELL DISTRIBUTION WIDTH 23.7 % (11.5-14.0); SEGMENTED NEUTROPHILS % (AUTO) 82.4 % (42-78); WHITE BLOOD COUNT 16.6 10^3/uL (4.0-10.5)
[2016-07-29] MEDS: LEVALBUTEROL HCL NEB 1.25 MG/3 ML AMPUL NEB SCH ×3 (07:39→19:43)
[2016-07-29 07:49] LABS: HEMOGLOBIN 12.4 g/dL (13.5-17.0); MEAN CORPUSCULAR VOLUME 71 fl (80-97)
[2016-07-29] MEDS: LANSOPRAZOLE 30 MG TAB.RAP.DR GT SCH ×3 (08:05→17:00)
[2016-07-29] MEDS: METOPROLOL TARTRATE 100 MG TABLET PO SCH (08:29)
[2016-07-29] MEDS: LACTOBACILLUS ACIDOPHILUS 250 MG TAB GT SCH (08:29)
[2016-07-29] MEDS: LEVOFLOXACIN 500 MG/D5W RTU 100 ML IV SCH (08:30)
[2016-07-29 08:34] LABS: ANION GAP 16 (5-19); BLOOD UREA NITROGEN 19 mg/dL (7-20); CALCIUM 9.9 mg/dL (8.4-10.2); CARBON DIOXIDE 21 mmol/L (22-30); CHLORIDE 106 mmol/L (98-107); CREATININE RESULT 0.66 mg/dL (0.52-1.25); GLUCOSE 141 mg/dL (75-110); MAGNESIUM 1.7 mg/dL (1.6-2.3); SODIUM 142.7 mmol/L (137-145)
[2016-07-29] MEDS ORDERED: CEFEPIME 1 GM/D5W RTU 50 ML IV SCH (10:00)
[2016-07-29] MEDS ORDERED: ERTAPENEM SODIUM 1 GM in NORMAL SALINE 50 ML IV ONE (11:30)
[2016-07-29] MEDS: FERROUS SULFATE LIQUID 300 MG/5 ML UDC PO SCH ×2 (11:50→17:00)
[2016-07-29] MEDS: MORPHINE SULFATE 10 MG/ML INJ IV PRN ×2 (11:51→16:35)
[2016-07-29] MEDS: MUPIROCIN 2% OINTMENT 22 GM TP SCH ×2 (11:59→17:04)
[2016-07-29] MEDS: SCOPOLAMINE HYDROBROMIDE 1.5 MG PATCH.TD72 TD SCH (12:10)
[2016-07-29] MEDS: INSULIN GLARGINE,HUM.REC.ANLOG 1,000 UNIT/10 ML UNIT SUBCUT SCH (12:10)
--- NOTE | 2016-07-29 13:26 | PDOC PROGRESS REPORT ---
Subjective Progress Note for:: 07/29/16 Subjective:: Patient is seen on morning rounds. He is resting in bed. His is at the bedside. She states he has had periods of discomfort pulling at his abdomen overnight. Patient underwent diversion colostomy yesterday afternoon. He continues to have loose congested cough. He is nonverbal and unable to participate in review of systems secondary to prior anoxic brain injury. Physical Exam Vital Signs: Temp Pulse Resp BP Pulse Ox 99.0 F 104 H 24 H 174/123 H 100 07/29/16 11:49 07/29/16 13:10 07/29/16 13:10 07/29/16 11:49 07/29/16 11:49 Intake & Output 07/28/16 07/29/16 07/30/16 06:59 06:59 06:59 Intake Total 710 2550 Output Total 200 Balance 710 2350 Weight 64.6 kg 69.3 kg General appearance: PRESENT: no acute distress, well-developed, well-nourished Head exam: PRESENT: atraumatic, normocephalic Eye exam: PRESENT: conjunctiva pink, EOMI, PERRLA. ABSENT: scleral icterus Ear exam: PRESENT: normal external ear exam Mouth exam: PRESENT: moist, tongue midline Neck exam: ABSENT: carotid bruit, JVD, lymphadenopathy, thyromegaly Respiratory exam: PRESENT: rhonchi, symmetrical, unlabored - bilatearl. ABSENT : rales, wheezes Cardiovascular exam: PRESENT: RRR. ABSENT: diastolic murmur, rubs, systolic murmur Pulses: PRESENT: normal dorsalis pedis pul Vascular exam: PRESENT: normal capillary refill GI/Abdominal exam: PRESENT: hypoactive bowel sounds - PEG tube patent, colostomy with pink stoma serosanguinous drainage in bag, soft, other. ABSENT: distended, guarding, mass, organolmegaly, rebound, tenderness Rectal exam: PRESENT: deferred Extremities exam: PRESENT: full ROM. ABSENT: calf tenderness, clubbing, pedal edema Musculoskeletal exam: PRESENT: normal inspection Neurological exam: PRESENT: alert, altered, CN II-XII grossly intact Psychiatric exam: PRESENT: flat affect Skin exam: PRESENT: other - stage 4 sacral wound with dry dressing Results Laboratory Results: 07/29/16 07:16 07/29/16 07:55 0507/29/16 07/29/16 09:30 07:16 07:55 WBC 16.6 H RBC 5.31 Hgb 12.4 L D Hct 37.8 L MCV 71 L D MCH 23.4 L MCHC 32.9 RDW 23.7 H Plt Count 402 Seg Neutrophils % 82.4 H Lymphocytes % 10.7 L Monocytes % 5.7 Eosinophils % 0.1 Basophils % 1.1 Absolute Neutrophils 13.7 H Absolute Lymphocytes 1.8 Absolute Monocytes 0.9 Absolute Eosinophils 0.0 Absolute Basophils 0.2 Sodium 142.7 Potassium 5.0 Chloride 106 Carbon Dioxide 21 L Anion Gap 16 BUN 19 Creatinine 0.66 Est GFR ( Amer) > 60 Est GFR (Non-Af Amer) > 60 Glucose 141 H Calcium 9.9 Magnesium 1.7 Blood Type A POSITIVE Antibody Screen NEGATIVE Impressions: Chest X-Ray 07/25/16 14:31 IMPRESSION: No acute changes Chest/Abdomen CTA 07/25/16 16:37 IMPRESSION: Diffuse small airways, nodular and tree-in-bud opacities are present throughout both lungs with right basilar predominance, this appearance can be seen with small airways infection including ABIDA, differential also includes hypersensitivity pneumonitis. No emboli visualized in the main pulmonary arteries. Breathing motion artifact limits evaluation of the segmental branches. Pelvis MRI 07/26/16 00:00 IMPRESSION: LIMITED MRI OF THE PELVIS ABOVE WITH FINDINGS CONCERNING FOR OSTEOMYELITIS OF THE COCCYX IN THE SETTING OF LARGE DECUBITUS ULCER. Skull X-Ray 07/26/16 00:00 IMPRESSION: No foreign body is present. Assessment & Plan - Diagnosis (1) Sepsis Qualifiers: Sepsis type: sepsis due to unspecified organism Qualified Code(s): A41.9 - Sepsis, unspecified organism Is this a current diagnosis for this admission?: YesPlan: Tachycardia, fever and tachypnea have improved. Probably secondary to pneumonia , possible aspiration, and stage 4 sacral wound with sacral osteomyelitis. Bone biopsy and sacral wound biopsy pending. (2) Acute osteomyelitis of sacrum Is this a current diagnosis for this admission?: YesPlan: Patient will need 6 weeks of IV antibitiotic therapy (3) Pneumonia Qualifiers: Pneumonia type: aspiration pneumonia Laterality: bilateral Lung location: unspecified part of lung Is this a current diagnosis for this admission?: YesPlan: Continue IV broad spectrum antibiotic therapy (4) Sacral decubitus ulcer, stage IV Is this a current diagnosis for this admission?: YesPlan: MRI shows early osteomyelitis of the sacrum, we will consult orthopedic surgery. Surgicalist, Dr. Abernathy, plans to take patient to the OR tomorrow for a diverting colostomy to help with sacral wound healing. (5) Chronic hypoxic-ischemic brain injury Is this a current diagnosis for this admission?: YesPlan: Patient is cared for at home by family (6) Hyperkalemia Is this a current diagnosis for this admission?: YesPlan: Resolving will continue to monitor (7) Anemia Qualifiers: Anemia type: iron deficiency Is this a current diagnosis for this admission?: YesPlan: Hgb dropped to 7.8 today, from 8.2. Due to diversion colostomy surgery today will transfuse 2 units of PRBcs Iron supplement given will continue to monitor - Time Time Spent with patient: 25-34 minutes Critical Time spent with patient: 15-24 minutes Medications reviewed and adjusted accordingly: Yes Anticipated discharge: Home with Homehealth
--- NOTE | 2016-07-29 15:53 | PDOC PROGRESS REPORT ---
Subjective Progress Note for:: 07/29/16 Subjective:: Patient noncommunicative this afternoon. Tube feeds have resumed. Physical Exam Vital Signs: Temp Pulse Resp BP Pulse Ox 99.0 F 104 H 24 H 174/123 H 100 07/29/16 11:49 07/29/16 13:10 07/29/16 13:10 07/29/16 11:49 07/29/16 11:49 Intake & Output 07/28/16 07/29/16 07/30/16 06:59 06:59 06:59 Intake Total 710 2550 Output Total 200 Balance 710 2350 Weight 64.6 kg 69.3 kg General appearance: PRESENT: other - Proctoscopy right grimacing but no communication or eye tracking GI/Abdominal exam: PRESENT: other - The ostomy appliance over the loop transverse colostomy is intact. the abdomen is not distended Results Laboratory Results: 07/29/16 07:16 07/29/16 07:55 07/28/16 07/29/16 07/29/16 09:30 07:16 07:55 WBC 16.6 H RBC 5.31 Hgb 12.4 L D Hct 37.8 L MCV 71 L D MCH 23.4 L MCHC 32.9 RDW 23.7 H Plt Count 402 Seg Neutrophils % 82.4 H Lymphocytes % 10.7 L Monocytes % 5.7 Eosinophils % 0.1 Basophils % 1.1 Absolute Neutrophils 13.7 H Absolute Lymphocytes 1.8 Absolute Monocytes 0.9 Absolute Eosinophils 0.0 Absolute Basophils 0.2 Sodium 142.7 Potassium 5.0 Chloride 106 Carbon Dioxide 21 L Anion Gap 16 BUN 19 Creatinine 0.66 Est GFR ( Amer) > 60 Est GFR (Non-Af Amer) > 60 Glucose 141 H Calcium 9.9 Magnesium 1.7 Blood Type A POSITIVE Antibody Screen NEGATIVE Impressions: Chest X-Ray 07/25/16 14:31 IMPRESSION: No acute changes Chest/Abdomen CTA 07/25/16 16:37 IMPRESSION: Diffuse small airways, nodular and tree-in-bud opacities are present throughout both lungs with right basilar predominance, this appearance can be seen with small airways infection including ABIDA, differential also includes hypersensitivity pneumonitis. No emboli visualized in the main pulmonary arteries. Breathing motion artifact limits evaluation of the segmental branches. Pelvis MRI 07/26/16 00:00 IMPRESSION: LIMITED MRI OF THE PELVIS ABOVE WITH FINDINGS CONCERNING FOR OSTEOMYELITIS OF THE COCCYX IN THE SETTING OF LARGE DECUBITUS ULCER. Skull X-Ray 07/26/16 00:00 IMPRESSION: No foreign body is present. Assessment & Plan - Diagnosis (1) Sacral decubitus ulcer, stage IV Is this a current diagnosis for this admission?: YesPlan: 1. Patient is one day status post diverting transverse loop all ostomy for fecal diversion, awaiting reliable bowel function. 2. Sacral decubitus, stage IV, with postop dressing removed. We'll anticipate replacement of wound VAC this evening. Long-term definitive management of complex sacral wound to be determined.
[2016-07-29] MEDS ORDERED: NORMAL SALINE 10 ML SDV (AFTER EACH USE) IV PRN (16:13)
[2016-07-29] MEDS: DEXTROSE 5%-NORMAL SALINE 1,000 ML IV PRN (17:02)
[2016-07-29] MEDS: NORMAL SALINE 10 ML SDV (SCHEDULED) IV SCH (22:53)
[2016-07-29] MEDS: OXYCODONE HCL IR 5 MG TABLET PEG PRN (22:54)
[2016-07-29] MEDS: MIRTAZAPINE 15 MG TABLET PEG SCH (22:54)
[2016-07-29] MEDS: DOXEPIN HCL 10 MG CAPSULE PEG SCH (22:54)
[2016-07-29] MEDS: METOPROLOL TARTRATE 100 MG TABLET PEG SCH (22:54)
[2016-07-29] MEDS: INSULIN GLARGINE,HUM.REC.ANLOG 300 UNIT/3 ML INSULN.PEN SUBCUT SCH (23:19)
--- NOTE | 2016-07-29 23:54 | EKG REPORT ---
SEVERITY:- ABNORMAL ECG - SINUS TACHYCARDIA IRBBB AND LPFB : Confirmed by: Miles Reed 29-Jul-2016 23:54:17
[2016-07-29] MEDS ORDERED: IMIPENEM/CILASTATIN SODIUM INJ 500 MG VIAL IV PRN (23:59)
[2016-07-30] MEDS ORDERED: IMIPENEM/CILASTATIN SODIUM INJ 500 MG VIAL IV ONE (00:42)
[2016-07-30] MEDS: IMIPENEM/CILASTATIN SODIUM 500 MG in NORMAL SALINE 100 ML IV SCH ×5 (01:36→22:03)
[2016-07-30] MEDS: DEXTROSE 5%-NORMAL SALINE 1,000 ML IV PRN ×3 (06:22→22:03)
[2016-07-30 06:42] LABS: HEMATOCRIT 32.7 % (37.9-51.0); HEMOGLOBIN 10.4 g/dL (13.5-17.0); HGB HCT DIFFERENCE -1.5; MEAN CORPUSCULAR HEMOGLOBIN 22.8 pg (27.0-33.4); MEAN CORPUSCULAR VOLUME 71 fl (80-97); RED BLOOD COUNT 4.58 10^6/uL (4.35-5.55); RED CELL DISTRIBUTION WIDTH 23.9 % (11.5-14.0); WHITE BLOOD COUNT 21.1 10^3/uL (4.0-10.5)
[2016-07-30 07:05] LABS: BAND NEUTROPHILS % (MANUAL) 6 % (3-5); BASOPHILS % (MANUAL) 0 % (0-2); EOSINOPHILS % (MANUAL) 1 % (0-6); LYMPHOCYTES % (MANUAL) 7 % (13-45); TOTAL CELLS COUNTED 100
[2016-07-30 07:08] LABS: HYPOCHROMASIA 2+
[2016-07-30 07:09] LABS: ANISOCYTOSIS 3+; MICROCYTOSIS 1+; TARGET CELLS 2+
[2016-07-30 07:10] LABS: POLYCHROMASIA SLIGHT
[2016-07-30 07:11] LABS: POIKILOCYTOSIS SLIGHT
[2016-07-30] MEDS: LEVALBUTEROL HCL NEB 1.25 MG/3 ML AMPUL NEB SCH ×3 (08:06→20:41)
[2016-07-30] MEDS: DIAZEPAM 2 MG TABLET PEG PRN ×2 (08:57→21:10)
[2016-07-30] MEDS: OXYCODONE HCL IR 5 MG TABLET PEG PRN ×3 (08:57→21:10)
[2016-07-30] MEDS: LANSOPRAZOLE 30 MG TAB.RAP.DR PEG SCH ×3 (08:58→17:30)
[2016-07-30] MEDS ORDERED: ERTAPENEM SODIUM 1 GM in NORMAL SALINE 50 ML IV SCH (10:00)
[2016-07-30] MEDS: INSULIN GLARGINE,HUM.REC.ANLOG 300 UNIT/3 ML INSULN.PEN SUBCUT SCH ×2 (10:32→21:11)
[2016-07-30] MEDS: METOPROLOL TARTRATE 100 MG TABLET PEG SCH ×2 (10:36→21:10)
[2016-07-30] MEDS: FERROUS SULFATE LIQUID 300 MG/5 ML UDC PEG SCH ×2 (10:36→17:30)
[2016-07-30] MEDS: LACTOBACILLUS ACIDOPHILUS 250 MG TAB PEG SCH (10:36)
[2016-07-30] MEDS: NORMAL SALINE 10 ML SDV (SCHEDULED) IV SCH ×2 (10:37→21:10)
[2016-07-30] MEDS: MUPIROCIN 2% OINTMENT 22 GM TP SCH ×2 (10:40→17:30)
--- NOTE | 2016-07-30 15:09 | PDOC PROGRESS REPORT ---
Subjective Progress Note for:: 07/30/16 Subjective:: The patient was seen earlier today on rounds. The patient is completely unresponsive and is unable to provide any history. This is the patient's baseline. It appears the patient became febrile tachycardic overnight. The patient's coverage was changed overnight. Will repeat culture and sensitivity and obtain urine as well. Physical Exam Vital Signs: Temp Pulse Resp BP Pulse Ox 98.6 F 94 16 150/33 H 99 07/30/16 07:09 07/30/16 13:24 07/30/16 13:24 07/30/16 07:09 07/30/16 04:00 Intake & Output 07/28/16 07/29/16 07/30/16 23:59 23:59 23:59 Intake Total 1350 2193 1200 Output Total 50 2050 Balance 1323 328 4394 Weight 64.6 kg 69.3 kg General appearance: PRESENT: disheveled, well-nourished Exam: Frail, chronically ill-appearing Head exam: PRESENT: atraumatic, normocephalic Eye exam: PRESENT: conjunctiva pale, EOMI, PERRLA. ABSENT: scleral icterus Ear exam: PRESENT: normal external ear exam Mouth exam: PRESENT: moist, tongue midline Neck exam: ABSENT: carotid bruit, JVD, lymphadenopathy, thyromegaly Respiratory exam: PRESENT: rhonchi, symmetrical, unlabored. ABSENT: rales, tachypnea, wheezes Cardiovascular exam: PRESENT: RRR. ABSENT: diastolic murmur, rubs, systolic murmur Pulses: PRESENT: normal dorsalis pedis pul Vascular exam: PRESENT: normal capillary refill GI/Abdominal exam: PRESENT: hypoactive bowel sounds, normal bowel sounds, soft, other - PEG tube in situ, colostomy with pink stoma serosanguinous drainage in bag, soft.. ABSENT: distended, guarding, mass, organolmegaly, rebound, tenderness Rectal exam: PRESENT: deferred Extremities exam: PRESENT: full ROM. ABSENT: calf tenderness, clubbing, pedal edema Neurological exam: PRESENT: alert, altered, other - Unable to assess orientation given the patient's TBI. ABSENT: motor sensory deficit Psychiatric exam: PRESENT: flat affect Skin exam: PRESENT: dry, intact, warm, other - Stage IV sacral wound with dry dressing. ABSENT: cyanosis, rash Results Laboratory Results: 07/30/16 06:30 07/29/16 07:55 07/30/16 06:30 WBC 21.1 H RBC 4.58 Hgb 10.4 L Hct 32.7 L MCV 71 L MCH 22.8 L MCHC 32.0 RDW 23.9 H Plt Count 406 Seg Neutrophils % Not Reportable Lymphocytes % Not Reportable Monocytes % Not Reportable Eosinophils % Not Reportable Basophils % Not Reportable Absolute Neutrophils Not Reportable Absolute Lymphocytes Not Reportable Absolute Monocytes Not Reportable Absolute Eosinophils Not Reportable Absolute Basophils Not Reportable Impressions: Chest X-Ray 07/25/16 14:31 IMPRESSION: No acute changes Chest/Abdomen CTA 07/25/16 16:37 IMPRESSION: Diffuse small airways, nodular and tree-in-bud opacities are present throughout both lungs with right basilar predominance, this appearance can be seen with small airways infection including ABIDA, differential also includes hypersensitivity pneumonitis. No emboli visualized in the main pulmonary arteries. Breathing motion artifact limits evaluation of the segmental branches. Pelvis MRI 07/26/16 00:00 IMPRESSION: LIMITED MRI OF THE PELVIS ABOVE WITH FINDINGS CONCERNING FOR OSTEOMYELITIS OF THE COCCYX IN THE SETTING OF LARGE DECUBITUS ULCER. Skull X-Ray 07/26/16 00:00 IMPRESSION: No foreign body is present. Guidance Fluoroscopy 07/29/16 00:00 IMPRESSION: SUCCESSFUL PLACEMENT OF A 5 FR DUAL LUMEN 42 CM PICC IN THE left basilic VEIN. Interventional Vascular Procedure 07/29/16 00:00 IMPRESSION: SUCCESSFUL PLACEMENT OF A 5 FR DUAL LUMEN 42 CM PICC IN THE left basilic VEIN. PICC Line Insertion 07/29/16 10:48 IMPRESSION: SUCCESSFUL PLACEMENT OF A 5 FR DUAL LUMEN 42 CM PICC IN THE left basilic VEIN. Assessment & Plan - Diagnosis (1) Acute osteomyelitis of sacrum Is this a current diagnosis for this admission?: Yes (2) Sacral decubitus ulcer, stage IV Is this a current diagnosis for this admission?: YesPlan: Appreciate surgical input with this. (3) Sepsis Qualifiers: Sepsis type: sepsis due to unspecified organism Qualified Code(s): A41.9 - Sepsis, unspecified organism Is this a current diagnosis for this admission?: YesPlan: Secondary to the above this appears to have improved today will continue to follow. (4) Aspiration pneumonia Qualifiers: Aspiration pneumonia type: unspecified Laterality: bilateral Lung location: unspecified part of lung Qualified Code(s): J69.0 - Pneumonitis due to inhalation of food and vomit Is this a current diagnosis for this admission?: YesPlan: Will continue current antibiotic coverage and follow (5) Chronic hypoxic-ischemic brain injury Is this a current diagnosis for this admission?: Yes (6) Hyperkalemia Is this a current diagnosis for this admission?: YesPlan: This improved with hydration - Time Time Spent with patient: 25-34 minutes Medications reviewed and adjusted accordingly: Yes Anticipated discharge: Home with Homehealth Within: within 24 hours Disposition: The patient is a full code. Pending patient's symptomatology and diagnostic findings will reevaluate in the a.m.
--- NOTE | 2016-07-30 17:59 | PDOC PROGRESS REPORT ---
Subjective Progress Note for:: 07/30/16 Subjective:: The patient is an for multiple issues including sacral ulcer. I'm seeing the patient to evaluate his sacral ulcer. This is for continuity of care. He has been treated in the wound clinic. Physical Exam Vital Signs: Temp Pulse Resp BP Pulse Ox 98.6 F 105 H 16 161/103 H 99 07/30/16 07:09 07/30/16 15:19 07/30/16 13:24 07/30/16 15:19 07/30/16 15:19 Intake & Output 07/29/16 07/30/16 07/31/16 06:59 06:59 06:59 Intake Total 2550 2193 Output Total 200 1900 1000 Balance 2350 293 -1000 Weight 69.3 kg Additional comments: A thin -[place]oc[place] male. Thin body habitus. No acute distress. Respiratory no shortness of breath. Does cough from time to time. Extremities exhibit flexion deformities. Skin: Pertinent for a sacral decubitus ulcer about 6 x 6 x 2 cm deep. With mostly good granulation, minimal slough.. Psychiatric the patient the patient is apparently awake, exhibits no obvious cognizance of his surroundings. Not verbally communicative. He relies on his for communication. Results Laboratory Results: 07/30/16 06:30 07/29/16 07:55 07/30/16 06:30 WBC 21.1 H RBC 4.58 Hgb 10.4 L Hct 32.7 L MCV 71 L MCH 22.8 L MCHC 32.0 RDW 23.9 H Plt Count 406 Seg Neutrophils % Not Reportable Lymphocytes % Not Reportable Monocytes % Not Reportable Eosinophils % Not Reportable Basophils % Not Reportable Absolute Neutrophils Not Reportable Absolute Lymphocytes Not Reportable Absolute Monocytes Not Reportable Absolute Eosinophils Not Reportable Absolute Basophils Not Reportable Impressions: Chest X-Ray 07/25/16 14:31 IMPRESSION: No acute changes Chest/Abdomen CTA 07/25/16 16:37 IMPRESSION: Diffuse small airways, nodular and tree-in-bud opacities are present throughout both lungs with right basilar predominance, this appearance can be seen with small airways infection including ABIDA, differential also includes hypersensitivity pneumonitis. No emboli visualized in the main pulmonary arteries. Breathing motion artifact limits evaluation of the segmental branches. Pelvis MRI 07/26/16 00:00 IMPRESSION: LIMITED MRI OF THE PELVIS ABOVE WITH FINDINGS CONCERNING FOR OSTEOMYELITIS OF THE COCCYX IN THE SETTING OF LARGE DECUBITUS ULCER. Skull X-Ray 07/26/16 00:00 IMPRESSION: No foreign body is present. Guidance Fluoroscopy 07/29/16 00:00 IMPRESSION: SUCCESSFUL PLACEMENT OF A 5 FR DUAL LUMEN 42 CM PICC IN THE left basilic VEIN. Interventional Vascular Procedure 07/29/16 00:00 IMPRESSION: SUCCESSFUL PLACEMENT OF A 5 FR DUAL LUMEN 42 CM PICC IN THE left basilic VEIN. PICC Line Insertion 07/29/16 10:48 IMPRESSION: SUCCESSFUL PLACEMENT OF A 5 FR DUAL LUMEN 42 CM PICC IN THE left basilic VEIN. Assessment & Plan - Diagnosis (1) Aspiration pneumonia Qualifiers: Aspiration pneumonia type: unspecified Laterality: bilateral Lung location: unspecified part of lung Qualified Code(s): J69.0 - Pneumonitis due to inhalation of food and vomit Is this a current diagnosis for this admission?: Yes (2) Chronic hypoxic-ischemic brain injury Is this a current diagnosis for this admission?: Yes (3) Sacral decubitus ulcer, stage IV Is this a current diagnosis for this admission?: Yes (4) Sepsis Qualifiers: Sepsis type: sepsis due to unspecified organism Qualified Code(s): A41.9 - Sepsis, unspecified organism Is this a current diagnosis for this admission?: Yes - Plan Summary Plan Summary: In this patient known to me from the wound clinic with a chronic sacral decubitus this ulcer, I recommend use of Santyl ointment beneath daily wet to dry dressings. Otherwise care seems really appropriate including surgeon of an ostomy. We look forward to taking him back in the wound clinic once he is discharged for further management of his sacral decubitus ulcer.
[2016-07-30] MEDS: DOXEPIN HCL 10 MG CAPSULE PEG SCH (21:08)
[2016-07-30] MEDS: MIRTAZAPINE 15 MG TABLET PEG SCH (21:10)
[2016-07-31] MEDS: IMIPENEM/CILASTATIN SODIUM 500 MG in NORMAL SALINE 100 ML IV SCH ×3 (06:00→18:00)
[2016-07-31] MEDS: LEVALBUTEROL HCL NEB 1.25 MG/3 ML AMPUL NEB SCH ×3 (08:00→20:37)
[2016-07-31] MEDS: LANSOPRAZOLE 30 MG TAB.RAP.DR PEG SCH ×3 (08:00→17:00)
[2016-07-31] MEDS: NORMAL SALINE 10 ML SDV (SCHEDULED) IV SCH ×2 (10:00→21:34)
[2016-07-31] MEDS: INSULIN GLARGINE,HUM.REC.ANLOG 300 UNIT/3 ML INSULN.PEN SUBCUT SCH ×2 (10:00→21:32)
[2016-07-31] MEDS: MUPIROCIN 2% OINTMENT 22 GM TP SCH ×2 (10:00→18:00)
[2016-07-31] MEDS: COLLAGENASE CLOSTRIDIUM HIST. OINT 30 GM TOP SCH (10:00)
[2016-07-31] MEDS: LACTOBACILLUS ACIDOPHILUS 250 MG TAB PEG SCH (10:00)
[2016-07-31] MEDS: FERROUS SULFATE LIQUID 300 MG/5 ML UDC PEG SCH ×2 (10:00→18:00)
[2016-07-31] MEDS: METOPROLOL TARTRATE 100 MG TABLET PEG SCH ×2 (10:00→21:24)
[2016-07-31] MEDS ORDERED: CLINDAMYCIN HCL 150 MG CAPSULE ONE (17:37)
[2016-07-31] MEDS ORDERED: LACTOBACILLUS ACIDOPHILUS 250 MG TAB ONE (17:38)
[2016-07-31] MEDS: OXYCODONE HCL IR 5 MG TABLET PEG PRN (21:24)
[2016-07-31] MEDS: MIRTAZAPINE 15 MG TABLET PEG SCH (21:24)
[2016-07-31] MEDS: DIAZEPAM 2 MG TABLET PEG PRN (21:24)
[2016-07-31] MEDS: DOXEPIN HCL 10 MG CAPSULE PEG SCH (21:24)
--- NOTE | 2016-07-31 23:28 | PROGRESS NOTE E ---
Progress Note NAME: ANETA HENDRICKSON : 1965 AGE: 50Y DATE: 07/31/2016 ROOM: [facility] SUBJECTIVE: The patient is lying in bed. He is in his usual state. He is nonresponsive. The patient's is present at the bedside and active in the patient's care. The patient had no reported episodes of vomiting. Discussed the case with the surgicalist who has agreed to proceed with PEG feedings and monitor residuals. Apparently the patient re-spiked a temperature overnight. The patient's is found to be quite agitated, stating that he has fevers intermittently when his blood pressure runs high. This is part of his brain injury. She states that "I can care for him better at home." Voiced understanding of this with the but also addressed the patient's leukocytosis and culture evidence of infection. She did concede with the plan of awaiting culture results and deferring discharge until tomorrow. No other concerns are voiced at this time. REVIEW OF SYSTEMS: Full review of systems cannot be appreciated given the patient's mental status. MEDICATIONS: Have been reviewed. OBJECTIVE: GENERAL: The patient is an unfortunate 50-year-old -[place]in[place] male that is currently unresponsive. His eyes will open but he does not track. No response to noxious stimuli. VITAL SIGNS: Temperature is 98.6, pulse 120, respirations 20, blood pressure is 153/95, oxygen saturation is 96% on room air. SKIN: Warm and dry. There is no rash. He is not diaphoretic. HEENT: Pupils are sluggishly reactive but equal. Conjunctivae are pale. There is no JVP. CARDIOVASCULAR: Heart is regular, tachycardiac. There is no murmur or rub. CHEST: Rhonchus breath sounds are noted, especially in the upper lung cruz. Symmetrical, unlabored. ABDOMEN: Soft, nontender PEG tube in situ. Diverting colostomy. Does have green drainage. BACK: No sacral edema. EXTREMITIES: Contracted with no edema. PSYCHIATRIC: Unable to assess. DIAGNOSTICS: Lab values are as follows: Chemistry obtained on 07/31/2016: Sodium is 145, potassium 4.5, chloride is 113, carbon dioxide 21, BUN 12, creatinine 0.63, calcium is 8.95, magnesium is 1.5, glucose is 185. IMPRESSION AND PLAN: 1. STAGE IV SACRAL DECUBITUS ULCER. Will continue current antibiotic therapy. The patient is to followup with Wound [facility] at [facility]. Do appreciate Dr. Chawla' input with this. The patient did have a diverting colostomy placed during this stay. Do appreciate the surgicalist input with this. 2. ASPIRATION PNEUMONIA. Have encouraged the patient to remain at 45 degrees if at all possible. Will begin feedings cautiously. Will cover the patient with clindamycin given that he has had re-spike of temperature and await culture and sensitivities. 3. SEPSIS SECONDARY TO THE ABOVE. The patient still remains tachycardiac. Once again, have added clindamycin and will await cultures and sensitivities. 4. HYPERTENSION. Will continue the patient's current medications. 5. HISTORY OF ANOXIC BRAIN INJURY. The patient is in a persistent vegetative state and the does want to resume care at home upon discharge. DISPOSITION: The patient is a FULL CODE. Pending patient's symptomatology and diagnostic findings, will reevaluate in the a.m. for discharge. Time spent on this followup including assessment, plan, physical examination, attempt at patient education, meeting with the patient's , and extensive review of records from the previous 24 hours is 35 minutes. DICTATING PHYSICIAN: PATSY NAGEL NP [id number] PHY#: [id number] ID: [id number] JOB#: [id number] ACCT: [id number] cc: >
[2016-08-01] MEDS: IMIPENEM/CILASTATIN SODIUM 500 MG in NORMAL SALINE 100 ML IV SCH ×3 (01:01→11:35)
[2016-08-01] MEDS: CLINDAMYCIN HCL 150 MG CAPSULE PEG SCH ×3 (01:02→10:53)
[2016-08-01] MEDS: LACTOBACILLUS ACIDOPHILUS 250 MG TAB PEG SCH ×3 (01:02→10:55)
[2016-08-01 07:17] LABS: ANION GAP 12 (5-19); BLOOD UREA NITROGEN 13 mg/dL (7-20); CARBON DIOXIDE 21 mmol/L (22-30); CHLORIDE 113 mmol/L (98-107); CREATININE RESULT 0.63 mg/dL (0.52-1.25); GLUCOSE 185 mg/dL (75-110); MAGNESIUM 1.5 mg/dL (1.6-2.3); POTASSIUM 3.5 mmol/L (3.6-5.0)
[2016-08-01] MEDS: LEVALBUTEROL HCL NEB 1.25 MG/3 ML AMPUL NEB SCH ×2 (07:46→13:38)
--- NOTE | 2016-08-01 09:43 | PDOC PROGRESS REPORT ---
Subjective Progress Note for:: 08/01/16 Subjective:: no distress Physical Exam Vital Signs: Temp Pulse Resp BP Pulse Ox 98.3 F 102 H 20 146/98 H 100 08/01/16 07:57 08/01/16 07:57 08/01/16 07:57 08/01/16 07:57 08/01/16 07:57 Intake & Output 07/31/16 08/01/16 08/02/16 06:59 06:59 06:59 Intake Total 2250 1336 Output Total 1000 260 Balance 1250 1076 Weight 69.3 kg General appearance: PRESENT: no acute distress GI/Abdominal exam: PRESENT: other - soft, nd, no apparent tenderness. ostomy functioning well. Results Laboratory Results: 07/31/16 05:50 07/31/16 05:50 Sodium 146.0 H Potassium 3.5 L Chloride 113 H Carbon Dioxide 21 L Anion Gap 12 BUN 13 Creatinine 0.63 Est GFR ( Amer) > 60 Est GFR (Non-Af Amer) > 60 Glucose 185 H Calcium 9.0 Magnesium 1.5 L 07/28/16 15:53 Coccyx - Not Specified Gram Stain - Final Impressions: Chest X-Ray 07/25/16 14:31 IMPRESSION: No acute changes Chest/Abdomen CTA 07/25/16 16:37 IMPRESSION: Diffuse small airways, nodular and tree-in-bud opacities are present throughout both lungs with right basilar predominance, this appearance can be seen with small airways infection including ABIDA, differential also includes hypersensitivity pneumonitis. No emboli visualized in the main pulmonary arteries. Breathing motion artifact limits evaluation of the segmental branches. Pelvis MRI 07/26/16 00:00 IMPRESSION: LIMITED MRI OF THE PELVIS ABOVE WITH FINDINGS CONCERNING FOR OSTEOMYELITIS OF THE COCCYX IN THE SETTING OF LARGE DECUBITUS ULCER. Skull X-Ray 07/26/16 00:00 IMPRESSION: No foreign body is present. Guidance Fluoroscopy 07/29/16 00:00 IMPRESSION: SUCCESSFUL PLACEMENT OF A 5 FR DUAL LUMEN 42 CM PICC IN THE left basilic VEIN. Interventional Vascular Procedure 07/29/16 00:00 IMPRESSION: SUCCESSFUL PLACEMENT OF A 5 FR DUAL LUMEN 42 CM PICC IN THE left basilic VEIN. PICC Line Insertion 07/29/16 10:48 IMPRESSION: SUCCESSFUL PLACEMENT OF A 5 FR DUAL LUMEN 42 CM PICC IN THE left basilic VEIN. Assessment & Plan - Diagnosis (1) Sacral decubitus ulcer, stage IV Is this a current diagnosis for this admission?: YesPlan: s/p diverting colostomy, ostomy functioning well. please arrange f/u with [place] [facility] when discharged.
--- NOTE | 2016-08-01 09:45 | PROGRESS NOTE E ---
Progress Note NAME: ANETA HENDRICKSON : 1965 AGE: 50Y DATE: 07/31/2016 ROOM: 527 The patient had undergone a transverse loop colostomy secondary to a large sacral pressure sore that continued to be contaminated with stool. SUBJECTIVE: The patient is not able to communicate. OBJECTIVE: The patient's ostomy is viable; however, it is protruding slightly. There is liquid in the colostomy bag, and the says flatus is coming out. The patient has a pressure sore in the sacral region. ASSESSMENT: 1. STATUS POST LOOP TRANSVERSE COLOSTOMY WITH IT STARTING TO FUNCTION. 2. LARGE SACRAL PRESSURE SORE HAVING WET-TO-DRY DRESSING CHANGES. PLAN: 1. Continue local wound care to the pressure sore. The patient's will be taking him to [facility] to have the wound VAC applied. In the meantime, just local wound care. 2. Start liquids through his tube feedings as it seems he has regained bowel function. We will advance him as tolerated. DICTATING PHYSICIAN: BRENDA WILLIAM M.D. [id number] PHY#: [id number] ID: [id number] JOB#: [id number] ACCT: [id number] cc: >
[2016-08-01] MEDS: LANSOPRAZOLE 30 MG TAB.RAP.DR PEG SCH ×2 (10:55→11:03)
[2016-08-01] MEDS: METOPROLOL TARTRATE 100 MG TABLET PEG SCH (10:56)
[2016-08-01] MEDS: MUPIROCIN 2% OINTMENT 22 GM TP SCH (11:29)
[2016-08-01] MEDS: COLLAGENASE CLOSTRIDIUM HIST. OINT 30 GM TOP SCH (11:29)
[2016-08-01] MEDS: SCOPOLAMINE HYDROBROMIDE 1.5 MG PATCH.TD72 TD SCH (11:30)
[2016-08-01] MEDS: FERROUS SULFATE LIQUID 300 MG/5 ML UDC PEG SCH (11:30)
[2016-08-01] MEDS: NORMAL SALINE 10 ML SDV (SCHEDULED) IV SCH (11:32)
[2016-08-01] MEDS: INSULIN GLARGINE,HUM.REC.ANLOG 300 UNIT/3 ML INSULN.PEN SUBCUT SCH ×2 (11:35→12:44)
[2016-08-01 12:26] VITALS: BP 149/97
--- NOTE | 2016-08-01 13:28 | TRANSFER SUMMARY E ---
Transfer Summary NAME: ANETA HENDRICKSON : 1965 AGE: 50Y ADMITTED: 07/25/2016 TRANSFERRED: 08/01/2016 CODE STATUS: FULL CODE. PRIMARY CARE PROVIDER: Dr. Pedro Cheatham CONSULTING SURGICALIST: Dr. Ma CONSULTING DIALYSIS EQUIPMENT TECHNICIAN: Dr. Chawla RECEIVING HOSPITALIST: Dr. Downs TRANSFER DIAGNOSES: 1. Yeast bacteremia. 2. Polymicrobial sacral osteomyelitis. 3. Persisted vegetative state secondary to anoxic brain injury. 4. Sepsis secondary to the above. 5. Aspiration pneumonia. 6. Chronic PEG feedings. 7. Stage IV sacral decubitus, status post debridement. 8. Postoperative diverting colostomy. CURRENT MEDICATIONS: 1. Ertapenem 1 g IV daily. 2. Micafungin 100 mg IV daily. 3. Xopenex 1.25 mg nebs q.6 hours. 4. Ferrous Sulfate 300 mg via PEG b.i.d. 5. Lopressor 100 mg via PEG q.12 hours. 6. Valium 2 mg via PEG q.6 hours p.r.n. 7. Remeron 15 mg via PEG q. hour of sleep. 8. Morphine 4 mg IV q.4 hours p.r.n. 9. Oxycodone 5 mg via PEG q.4 hours p.r.n. 10. Lactobacillus acidophilus 200 mg via PEG q.6 hours. 11. Prevacid 30 mg via PEG b.i.d. 12. Lantus 15 units subcutaneous q.12 hours. 13. Scopolamine patch 1 transdermally q.72 hours. 14. Humalog sliding scale coverage q.6 hours p.r.n. 15. Santyl ointment application daily. 16. Doxepin 10 mg via PEG q. hour of sleep. DIET: PEG feedings, currently Glucerna at 60 mL an hour. ACTIVITY: Bedrest. HISTORY OF PRESENT ILLNESS: The patient is an unfortunate 50-year-old -[place] male with a past medical history of chronic hypoxic brain injury secondary to a remote cardiac arrest with subsequent persistent vegetative state. The patient was brought into the emergency department via EMS due to findings of respiratory distress. According to the patient's who cares for him at home, the patient had approximately 3 days of intermittent fevers and coughing which prompted evaluation in the emergency department where he was found to have findings on CT of pneumonia. The patient was also noted to be hyperkalemic at that time. The patient had evidence of sepsis including a white count of 16.1 with 6 bands and was found to be fevered. The patient was cultured and referred to the hospitalist for admission and management. HOSPITAL COURSE: The patient was admitted to continuous telemetry unit. The patient was covered with IV Zithromax as well as Rocephin. The patient was also seen and evaluated by Surgery given the patient's decubitus ulcer. The patient had findings that were suggestive of an infection and the patient's IV antibiotic coverage was transitioned to ertapenem. The patient went to the OR on 07/28/2016 for debridement as well as diverting colostomy placement. During the patient's operative debridement, bone biopsy was obtained and was not sent pathology but was sent for culture. Seven organisms have been identified within this and still awaiting final identification, but prominent at this time is noted to be Enterococcus faecalis group D as well as Peptostreptococcus and Providencia. The patient had a PICC line placed on 07/29/2016 for chronic antibiotic therapy given findings of sacral osteomyelitis. The morning of 08/01/2016, was made aware by Microbiology that one of the patient's blood cultures that was a line draw is positive for yeast. Further identification on this is still pending. However, the patient has subsequently re-spiked fever and PICC line will be removed and the patient will be started on micafungin. Given the lack of infectious disease support as well as the patient already has established care at [facility] and inability to perform KAYLEY if needed, contacted [facility] and who has graciously accepted the care of this patient for transfer. At this time of transfer, the patient is hemodynamically stable although ill. The is in agreeance to this plan and the patient does remain mildly tachycardiac but overall stable at this time. DIAGNOSTICS: Lab values are as follows: Hematology obtained on 07/31/2016: WBCs are 21.1, hemoglobin is 10.4, hematocrit is 32.7, and platelet count is 406,000. Coagulation obtained on 07/28/2016: PT is 14.8. INR is 1.12. Chemistry obtained on 07/31/2016: Sodium is 146, potassium 3.5, chloride is 113, carbon dioxide 21, BUN 13, creatinine 0.63, glucose 85, calcium is 9.0, magnesium is 1.5, A1c is 7.1, lactic acid is 2. Iron 10: TIBC 201, ferritin is 14.6. Total bilirubin 0.6, AST 36, ALT is 28, alk phos 248, CK 179, troponin 0.012, total protein 9.3, albumin 3.6, lipase is 16.4, B12 is 517, folate is greater than 20. Urinalysis obtained on 07/25/2016: Color yellow, appearance clear, pH 7.0, specific gravity 1.008, protein negative, glucose negative, ketones negative, occult blood negative, nitrate negative, bilirubin negative, urobilinogen negative, leukocyte esterase negative, WBC 0, RBC 0, ascorbic acid is 40. Microbiology obtained on 07/25/2016: Blood cultures reveal no growth. Urine culture obtained on 07/25/2016 reveals no growth. Blood culture obtained on 07/30/2016: One bottle of 1 set reveals yeast. Urine culture obtained on 07/30/2016 reveals no growth. Coccyx specimen obtained on 07/28/2016 obtained intraoperatively reveals 7 various organisms. Please see attached microbiology report. PHYSICAL EXAMINATION: GENERAL: On examination, the patient is a frail, chronically ill appearing, 50-year-old -[place] male who will open his eyes but does not track and is minimally responsive. He does have a cough reflex though. Currently in no acute distress. VITAL SIGNS: Temperature 98.3, pulse 102, respirations 20, blood pressure 148/90, oxygen saturation is 100% on 3 L nasal cannula. SKIN: Warm and dry. No rash. Not diaphoretic. HEENT: Pupils are sluggish but equal and reactive. There is no JVP. Mucous membranes are moist. CARDIOVASCULAR: Heart is tachycardiac but regular. There is no murmur or rub. CHEST: Rhonchus breath sounds are known diffusely throughout lung cruz. ABDOMEN: Soft. PEG tube in situ. Diverting colostomy site looks good. EXTREMITIES: No clubbing, cyanosis, or edema. PSYCHIATRIC: Unobtainable. NEUROLOGIC: Chronically impaired. TRANSFER PLAN: The patient will be received at the services of hospitalist at [facility] with support of the surgicalist as well as infectious disease. Time spent on this transfer including assessment, plan, physical examination, attempt at patient education, family meeting, and excessive review of records is 90 minutes. And as always, would like to thank Dr. Downs and Graeme Palacios for graciously participating in the care of this patient. DICTATING PHYSICIAN: PATSY NAGEL NP [id number] PHY#: [id number] ID: [id number] JOB#: [id number] ACCT: [id number] cc:PATSY NAGEL NP >
[2016-08-01] MEDS: DIAZEPAM 2 MG TABLET PEG PRN (13:38)
[2016-08-01] MEDS: OXYCODONE HCL IR 5 MG TABLET PEG PRN (13:39)
[2016-08-01 14:27] LABS: ANION GAP 10 (5-19); BLOOD UREA NITROGEN 9 mg/dL (7-20); CALCIUM 8.8 mg/dL (8.4-10.2); CARBON DIOXIDE 22 mmol/L (22-30); CHLORIDE 116 mmol/L (98-107); CREATININE RESULT 0.59 mg/dL (0.52-1.25); GLUCOSE 141 mg/dL (75-110); POTASSIUM 3.3 mmol/L (3.6-5.0); SODIUM 148.3 mmol/L (137-145)
[2016-08-01 16:18] LABS: HEMATOCRIT 32.6 % (37.9-51.0); HGB HCT DIFFERENCE -2.6; MEAN CORPUSCULAR HEMOGLOBIN 22.5 pg (27.0-33.4); MEAN CORPUSCULAR HGB CONC 30.8 g/dL (32.0-36.0); MEAN CORPUSCULAR VOLUME 73 fl (80-97); RED BLOOD COUNT 4.46 10^6/uL (4.35-5.55); RED CELL DISTRIBUTION WIDTH 24.9 % (11.5-14.0); WHITE BLOOD COUNT 18.1 10^3/uL (4.0-10.5)
[2016-08-01] MEDS ORDERED: MICAFUNGIN SODIUM 150 MG in NORMAL SALINE 100 ML IV SCH (18:00)
[2016-08-02] MEDS ORDERED: ERTAPENEM SODIUM 1 GM in NORMAL SALINE 50 ML IV SCH (10:00)
== END 2016-08-01 15:18 | disposition short-term general hospital (02) | DRG 853 ==
LOC: ER 14:15 → EH 19:57 → 5 22:50
PROVIDERS: ADMIT Internal Medicine; ATTEND Internal Medicine
PROC: 3E0F73Z Introduction of Anti-inflammatory into Respiratory Tract, Via Natural or Artificial Opening (ICD-10-PCS; 2016-07-25)
PROC: 0D1N0Z4 Bypass Sigmoid Colon to Cutaneous, Open Approach (ICD-10-PCS; 2016-07-28)
PROC: 30233N1 Transfusion of Nonautologous Red Blood Cells into Peripheral Vein, Percutaneous Approach (ICD-10-PCS; 2016-07-28)
PROC: 0QB10ZZ Excision of Sacrum, Open Approach (ICD-10-PCS; principal; 2016-07-28 13:30)
PROC: 02HV33Z Insertion of Infusion Device into Superior Vena Cava, Percutaneous Approach (ICD-10-PCS; 2016-07-29)
PROC: B548ZZA Ultrasonography of Superior Vena Cava, Guidance (ICD-10-PCS; 2016-07-29)
PROC: B518ZZA Fluoroscopy of Superior Vena Cava, Guidance (ICD-10-PCS; 2016-07-29)
DX: A41.9 Sepsis, unspecified organism (principal); L89.154 Pressure ulcer of sacral region, stage 4; J69.0 Pneumonitis due to inhalation of food and vomit; G82.50 Quadriplegia, unspecified; M46.28 Osteomyelitis of vertebra, sacral and sacrococcygeal region; R40.3 Persistent vegetative state; G93.1 Anoxic brain damage, not elsewhere classified; R47.01 Aphasia; E87.5 Hyperkalemia; B96.89 Other specified bacterial agents as the cause of diseases classified elsewhere; B95.2 Enterococcus as the cause of diseases classified elsewhere; I10 Essential (primary) hypertension; E10.9 Type 1 diabetes mellitus without complications; M24.50 Contracture, unspecified joint; D50.9 Iron deficiency anemia, unspecified; I45.10 Unspecified right bundle-branch block; I25.2 Old myocardial infarction; Z74.01 Bed confinement status; Z93.1 Gastrostomy status; Z79.4 Long term (current) use of insulin; Z79.899 Other long term (current) drug therapy; Z87.891 Personal history of nicotine dependence; Z88.6 Allergy status to analgesic agent; Z88.0 Allergy status to penicillin
CPT/HCPCS: 00630; 36415; 36430; 36569; 51701; 70250; 71010; 71275; 72195; 76937; 77001; 80048; 80076; 81001; 82550; 82607; 82728; 82746; 82962; 83036; 83540; 83550; 83605; 83690; 83735; 84484; 85025; 85027; 85045; 85610; 86850; 86900; 86901; 86920; 87040; 87070; 87075; 87077; 87086; 87186; 87205; 93005; 93010; 94640; 96361; 96365; 96375; 99214; 99285; G8996-GN; G8997-GN; G8998-GN; J0456; J0610; J0743; J1100; J1335; J1642; J1644; J1756; J1815; J1940; J1956; J2060; J2250; J2270; J2370; J2405; J2704; J3010; J3490; J7030; J7040; J7060; J7620; P9016